=== PATIENT | female | born 1950 | race Caucasian/White ===

== ENCOUNTER → 2016-09-17 | Outpatient (CLI) | payer MEDICARE ==
--- NOTE | 2016-09-17 18:50 | Diagnostic Imaging Report ---
PROCEDURE: US Thyroid. TECHNIQUE: Multiple real-time grayscale images were obtained of the thyroid in various projections. INDICATION: Thyromegaly. No priors for comparison. FINDINGS: The right thyroid lobe is diffusely inhomogenous in its echotexture and measures 4.3 x 2.0 x 1.5 cm and contains a hypoechoic nodule at its upper pole measuring 1.5 x 0.6 x 1.0 cm. It appears at least partly cystic. The left lobe measured 4.0 x 1.8 x 1.6 cm and appeared nonfocal although diffusely heterogeneous. The isthmus unremarkable aside from generalized heterogeneity. IMPRESSION: Inhomogeneous thyroid parenchyma diffusely bilaterally without organomegaly. 1.5 cm maximal diameter hypoechoic right lobe nodule suggestive of at least partial cystic degeneration. If no priors are available to confirm its stability, consider followup in 6-12 months. Dictated by: Dictated on workstation # [id number]
== END ==
LOC: RAD 13:01
PROVIDERS: ATTEND Family Medicine
DX: E04.1 Nontoxic single thyroid nodule (principal); E03.9 Hypothyroidism, unspecified; E01.0 Iodine-deficiency related diffuse (endemic) goiter
CPT/HCPCS: 76536

== ENCOUNTER 2017-09-27 15:16 | Emergency (ER) | payer MEDICARE ==
--- OUTSIDE RECORDS SUMMARY | 2017-09-28 12:36 | XMS REPORT | CCD ---
Author Author PRINCE OTERO Organization Unknown Address [address] [facility] [address] [place] [address] Care Team Providers Care Implementation Architect Name Role Phone PILY MCMANUS, MANUEL GATICA Attphys E., SCOOTER NASST B., ARIADNA NASST A., CHET MARTIN NASST F., JASON NASST S., CARMELITA ALBARADO NASST S., CHANDRA NASST K., CHANDRA Greenberg NASST M., MICHELLE NASST Allergies Allergy Code Allergy Type Reaction Status No Known Drug Allergies 0 Drug allergy Active Active Medications Medication Code Dose Units Frequency Route Modification Start Date/Time Avalide 12.5MG-300MG Oral Tablet 186573 1 EACH DAILY ORAL 12/26/2016 21:52 Prescription Detail 1 EACH ORAL DAILY Colace 100MG Oral Capsule, Liquid Filled 6989756 100 MILLIGRAMS NEEDED ORAL 12/26/2016 21:52 Prescription Detail 100 MILLIGRAMS ORAL NEEDED Flaxseed Oil 1000 MG Oral Capsule, Liquid Filled 34752672062 2 CAP DAILY ORAL 12/26/2016 21:52 Prescription Detail 2 CAP ORAL DAILY Levothyroxine 25MCG Oral Tablet 828435 25 MCG DAILY ORAL 12/26/2016 21:52 Prescription Detail 25 MCG ORAL DAILY Pantoprazole Sodium 40MG Oral Tablet, Enteric Coated 708936 40 MILLIGRAMS DAILY ORAL 12/26/2016 21:52 Prescription Detail 40 MILLIGRAMS ORAL DAILY Potassium 99 MG Oral Tablet 95281244541 99 MG DAILY ORAL 12/26/2016 21:52 Prescription Detail 99 MG ORAL DAILY Tylenol 325MG Oral Tablet 173518 325 MILLIGRAMS NEEDED ORAL 12/26/2016 21:52 Prescription Detail 325 MILLIGRAMS ORAL NEEDED Vitamin D 5000 IU Oral Capsule 595734 8550 IU DAILY ORAL 12/26/2016 21:52 Prescription Detail 5000 IU ORAL DAILY Arthrotec 75 75MG-0.2MG Oral Tablet, Enteric Coated 4659764 1 EACH DAILY ORAL 12/26/2016 21:51 Prescription Detail 1 EACH ORAL DAILY hold until 24hrs after the last Xarelto dose Aspirin 325MG Oral Tablet, Enteric Coated 669021 1 TABLET TWO TIMES A DAY BY MOUTH 12/26/2016 21:51 Prescription Detail 1 TABLET BY MOUTH TWO TIMES A DAY start 24hrs after the last Xarleto dose oxyCODONE HCl-acetaminophen 5MG-325MG Oral Tablet 0235498 1 - 2 TABLET NEEDED EVERY 4 HR BY MOUTH FOR PAIN 12/26/2016 21:51 Prescription Detail 1 - 2 TABLET BY MOUTH NEEDED EVERY 4 HR FOR PAIN Docusate Sodium 100MG Oral Capsule, Liquid Filled 7789564 1 TABLET TWO TIMES A DAY BY MOUTH 12/26/2016 21: 50 Prescription Detail 1 TABLET BY MOUTH TWO TIMES A DAY Thera-M Enhanced 90MG-0.03MG-0.15MG-4 Oral Tablet 232628 1 TABLET DAILY BY MOUTH 12/26/2016 21:50 Prescription Detail 1 TABLET BY MOUTH DAILY Xarelto 10MG Oral Tablet 2418858 1 TABLET DAILY BY MOUTH 12/26/2016 21:50 Prescription Detail 1 TABLET BY MOUTH DAILY for ten days Problems Problem Code Start Date Resolved Date Status Status post knee replacement 3382755921117 Active Post op pain 754519711 Active Diabetes 28722327 Active Status post knee replacement [id number] 11/18/2016 Resolved Post op pain 269321713 11/18/2016 Resolved Procedures Procedure Code Procedure Type Date Replacement of Right Knee Joint with Synthetic Substitute, Cemented, Open [id number] ICD-10 PCS 11/13/2016 PT GROUP THERAPY 064609105 SNOMED CT 11/15/2016 PT GROUP THERAPY 355199004 SNOMED CT 11/15/2016 PT GAIT TRAINING/STAIRS EA [address] 11/15 KNEE 1V OR 2V 32687701 SNOM[address] 11/13/2016 CBC W/ AUTO DIFF (RFLX MAN DIFF IF IND) 8448748 SNOMED CT 11/15/2016 CBC W/ AUTO DIFF (RFLX MAN DIFF IF IND) 6000184 SNOMED CT 11/14/2016 BEDSIDE GLUCOSE 43066730 SNOMED CT 11/13/2016 PT GROUP THERAPY 368792436 SNOMED CT 11/14/2016 PT GROUP THERAPY 779841814 SNOMED CT 11/14/2016 PT EVALUATION; LOW 682464295 SNOMED CT 11/13/2016 THERAPEP TREATMENT SUBSEQUENT 632407647 SNOMED CT 2016 THERAPEP TREATMENT SUBSEQUENT 010274336 SNOMED CT 2016 THERAPEP TREATMENT SUBSEQUENT 208012201 SNOMED CT 2016 THERAPEP TREATMENT SUBSEQUENT 968882084 SNOMED CT 2016 THERAPEP TREATMENT SUBSEQUENT 394516860 SNOMED CT 2016 THERAPEP TREATMENT SUBSEQUENT 511163890 SNOMED CT 2016 THERAPEP TREATMENT SUBSEQUENT 420577603 SNOMED CT 2016 THERAPEP TREATMENT SUBSEQUENT 670724405 SNOMED CT 2016 THERAPEP TREATMENT INITIAL 656787475 SNOMED CT 11/13/2016 ^CBC W/AUTO DIFF 5830030 SNOMED CT 11/15/2016 ^CBC W/AUTO DIFF 6437340 SNOMED CT 11/14/2016 Results BEDSIDE GLUCOSE - Collect Date/Time: 11/13/2016 06:38 Test Name Code Test Result Test Units Test Ref Range GLUCOSE POCT 120 MG/DL L=70 H=100 CBC W/ AUTO DIFF (RFLX MAN DIFF IF IND) - Collect Date/Time: 11/15/2016 06:10 Test Name Code Test Result Test Units Test Ref Range WBC 30742-4 8.9 TH/CMM L=4.5 H=10.8 RBC 789-8 3.87 ML/CMM L=4.20 H=5.40 HGB 718-7 10.9 G/DL L=12.0 H=16.0 HCT 4544-3 34.5 % L=37.0 H=47.0 MCV 55117-1 89 FL L=81 H=99 MCH 89713-4 28.2 PG L=27.0 H=33.0 MCHC 65372-5 31.6 G/DL L=31.0 H=36[place] [address]-9 43 FL L=36 H=50 [place] [address]-5 13.1 % L=0.0 H=14.8 MPV 33727-7 11.0 FL L=9.3 H=12.5 PLT 777-3 210 TH/CMM L=130 H=440 NRBC# 35054-1 0.00 TH/CMM L=0.00 H=0.00 NRBC% 90087-0 0.0 /100WBC L=0.0 H=2.0 %NEUT 69507-0 69.4 % %LYMP 82241-4 19.9 % %MONO 63210-2 7.7 % %EOS 91639-4 2.5 % %BASO 22579-7 0.3 % #NEUT 47889-6 6.16 TH/CMM L=2.10 H=8.20 #LYMP 60844-0 1.77 TH/CMM L=0.90 H=5.20 #MONO 11119-4 0.68 TH/CMM L=0.16 H=1.00 #EOS 34871-1 0.22 TH/CMM L=0.00 H=0.80 #BASO 36084-4 0.03 TH/CMM L=0.00 H=0.20 MANUAL DIFF 29852-0 NOT IND N/A CBC W/ AUTO DIFF (RFLX MAN DIFF IF IND) - Collect Date/Time: 11/14/2016 06:35 Test Name Code Test Result Test Units Test Ref Range WBC 49985-5 12.8 TH/CMM L=4.5 H=10.8 RBC 789-8 3.85 ML/CMM L=4.20 H=5.40 HGB 718-7 11.0 G/DL L=12.0 H=16.0 HCT 4544-3 34.2 % L=37.0 H=47.0 MCV 70799-7 89 FL L=81 H=99 MCH 71914-6 28.6 PG L=27.0 H=33.0 MCHC 91071-0 32.2 G/DL L=31.0 H=36[place]0 [place] [address]-6 42 FL L=36 H=50 [place] [address]-5 13.0 % L=0.0 H=14.8 MPV 00772-8 10.7 FL L=9.3 H=12.5 PLT 777-3 227 TH/CMM L=130 H=440 NRBC# 49283-8 0.00 TH/CMM L=0.00 H=0.00 NRBC% 87835-0 0.0 /100WBC L=0.0 H=2.0 %NEUT 45916-6 82.4 % %LYMP 03309-3 11.6 % %MONO 36860-6 5.3 % %EOS 25467-9 0.2 % %BASO 20489-0 0.1 % #NEUT 45800-8 10.52 TH/CMM L=2.10 H=8.20 #LYMP 79074-1 1.48 TH/CMM L=0.90 H=5.20 #MONO 63798-2 0.67 TH/CMM L=0.16 H=1.00 #EOS 11966-9 0.02 TH/CMM L=0.00 H=0.80 #BASO 36743-1 0.01 TH/CMM L=0.00 H=0.20 MANUAL DIFF 17456-8 NOT IND N/A Function Status Unknown or Not Available. History of Immunizations Immunization Code Date influenza, split (incl. purified surface antigen) 15 06/01/1999 influenza, split (incl. purified surface antigen) 15 06/10/2000 pneumococcal polysaccharide PPV23 33 03/07/2016 Hep B, adult 43 07/06/1993 Hep B, adult 43 08/10/1993 Hep B, adult 43 01/10/1994 Novel lbclohofu-[id number], preservative-free 126 06/13/2009 Pneumococcal conjugate PCV 13 133 02/03/2015 Influenza, seasonal, injectable 141 05/19/2012 Influenza, seasonal, injectable 141 05/04/2013 influenza, injectable, quadrivalent, preservative free 150 2013 Plan of Treatment Unknown or Not Available. Social History Smoking Status Code Start Date End Date Never smoker [id number] Vital Signs Vital Sign Value Unit Date/Time Recent/Initial? BMI (Body Mass Index) 30.28 kg/m2 10/28/2016 12:08 Initial VS Weight Measured 211 [lb_av] 10/28/2016 12:08 Initial VS Height 70 [in_i] 10/28/2016 12:08 Initial VS BSA (Body Surface Area) 2.17 m2 10/28/2016 12:08 Initial VS BMI (Body Mass Index) 30.28 kg/m2 10/28/2016 12:26 Most Recent VS Weight Measured 211 [lb_av] 10/28/2016 12:26 Most Recent VS Height 70 [in_i] 10/28/2016 12:26 Most Recent VS BSA (Body Surface Area) 2.17 m2 10/28/2016 12:26 Most Recent VS BP Systolic 130 mm[Hg] 10/28/2016 12:26 Initial VS BP Diastolic 76 mm[Hg] 10/28/2016 12:26 Initial VS Respiratory Rate 18 /min 10/28/2016 12:26 Initial VS Heart Rate 70 /min 10/28/2016 12:26 Initial VS O2 % BldC Oximetry 97 % 10/28/2016 12:26 Initial VS Body Temperature 94.8 [degF] 11/13/2016 10:30 Initial VS BP Systolic 131 mm[Hg] 11/15/2016 11:07 Most Recent VS BP Diastolic 66 mm[Hg] 11/15/2016 11:07 Most Recent VS Respiratory Rate 16 /min 11/15/2016 11:07 Most Recent VS Heart Rate 71 /min 11/15/2016 11:07 Most Recent VS O2 % BldC Oximetry 97 % 11/15/2016 11:07 Most Recent VS Body Temperature 97 [degF] 11/15/2016 11:07 Most Recent VS Function Status Unknown or Not Available. Goals Unknown or Not Available. ASSESSMENTS Unknown or Not Available. Health Concerns Section Unknown or Not Available.
--- OUTSIDE RECORDS SUMMARY | 2017-09-28 12:36 | XMS REPORT | Continuity of Care Document ---
Author Author [facility] Organization [facility] Address Unknown Phone Unavailable Allergies There is no data. Medications There is no data. Problems There is no data. Procedures There is no data. Results There is no data. Encounters ACCT No. Visit Date/Time Discharge Status Pt. Type Provider Facility Loc./Unit Complaint [id number] 04/02/2017 13:03:32 04/02/2017 23:59:59 CLS Outpatient Josephine Us [id number] 01/03/2017 12:00:12 01/03/2017 23:59:59 CLS Outpatient Josephine Us
== END 2017-09-27 16:18 | disposition left against medical advice (07) ==
LOC: EDUNIT# 15:16 → ER 15:18
DX: R11.10 Vomiting, unspecified (principal); R05 Cough

== ENCOUNTER → 2017-10-23 | Outpatient (CLI) | payer MEDICARE | LOC: CARD 11:51 | PROVIDERS: ATTEND Family Medicine | DX: R01.1 Cardiac murmur, unspecified (principal); R79.89 Other specified abnormal findings of blood chemistry; I07.1 Rheumatic tricuspid insufficiency | CPT/HCPCS: 93306 ==

== ENCOUNTER 2018-08-17 05:42 | Outpatient (CLI) | payer MEDICARE ==
[~2018-08-17] VITALS: Ht 175.3 cm; Wt 87.1 kg
[2018-08-17] MEDS ORDERED: DICL50TA6 PO (09:34)
[2018-08-17] MEDS ORDERED: MAGN250T2 PO (09:34)
[2018-08-17] MEDS ORDERED: CHOL400T PO (09:34)
[2018-08-17] MEDS ORDERED: [UNRECOGNIZED DRUG - CODE] PO (09:34)
[2018-08-17] MEDS ORDERED: PANT40TA3 PO (09:34)
[2018-08-17] MEDS ORDERED: AMLO5TAB9 PO (09:34)
[2018-08-17] MEDS ORDERED: IRBE1TAB43 PO (09:34)
[2018-08-17] MEDS ORDERED: POTA99TA7 PO (09:35)
== END 2018-08-17 09:41 | disposition home or self-care (01) ==
LOC: PREOP 05:42
PROVIDERS: ATTEND Surgery
DX: Z01.818 Encounter for other preprocedural examination (principal)

== ENCOUNTER 2018-08-24 08:57 | Day surgery (SDC) | payer MEDICARE ==
[~2018-08-24] VITALS: Ht 175.3 cm; Wt 87.1 kg
[~2018-08-24 08:57] MED LIST: AMLO5TAB9 PO; CHOL400T PO; DICL50TA6 PO; IRBE1TAB43 PO; MAGN250T2 PO; PANT40TA3 PO; POTA99TA7 PO; [UNRECOGNIZED DRUG - CODE] PO
--- OUTSIDE RECORDS SUMMARY | 2018-08-24 09:00 | XMS REPORT | Continuity of Care Document ---
Author Author [facility] Organization [facility] Address Unknown Phone Unavailable Allergies Active Description Code Type Severity Reaction Onset Reported/Identified Relationship to Patient Clinical Status Yes NO KNOWN DRUG ALLERGIES UNKNOWN NO KNOWN DRUG ALLERG Yes No Known Drug Allergies [id number] Drug Allergy Unknown N/A 08/17/2018 Medications Medication Packaging Start Date Stop Date Route Dosage Sig IPRATROPIUM/ALBUTEROL INH SOLN (DUO-NEB INH SOLN) MLS 2017 2017 ONCE&1751 NORMAL SALINE 1000CC IV BAG INJ 0.9 % (NS 1000CC IV BAG) ml 2017 10/12/2017 CONTINUOUSEVERY 0 Hour ONDANSETRON VIAL INJ 4 MG/2CC (ZOFRAN 2CC VIAL) MG 2017 2017 PRN ONCE NORMAL SALINE 500CC IV BAG INJ 0.9 % (NS 500CC IV BAG) ml 2017 2017 ONCE&1826 METHYLPREDNISOLONE VIAL INJ 125 MG/2CC (SOLU-MEDROL VIAL) MG 2017 2017 ONCE&1836 LEVOFLOXACIN TAB 500 MG (LEVAQUIN) MG 2017 2017 ONCE&1948 MISOPROSTOL TAB 200 MCG (CYTOTEC) Dose(s) 2017 10/04/2017 BID&0800,2000 ASPIRIN 81MG CHEWABLE TAB 81 MG (BABY ASPIRIN) MG 2017 2017 ONCE&2105 LEVOFLOXACIN PREMIX IV BAG INJ 500 MG/100CC (LEVAQUIN IV PREMIX 100CC BAG) MG 2017 2017 ONCE&2105 NORMAL SALINE 1000CC IV BAG INJ 0.9 % (NS 1000CC IV BAG) ml 2017 10/12/2017 CONTINUOUSEVERY 0 Hour PANTOPAZOLE VIAL INJ 40 MG (PROTONIX IV) MG 2017 2017 ONCE&2105 ONDANSETRON VIAL INJ 4 MG/2CC (ZOFRAN 2CC VIAL) MG 2017 2017 PRN ONCE GUAIFENESIN TAB 600 MG (MUCINEX) MG 09/28/2017 10/04/2017 Q12H&0600,1800 LEVOTHYROXINE TAB 25MCG (SYNTHROID) MCG 09/28/2017 10/04/2017 Daily&0600 IPRATROPIUM/ALBUTEROL INH SOLN (DUO-NEB INH SOLN) MLS 09/28/2017 10/07/2017 QID&0600,1100,1600,2100 AZITHROMYCIN TAB 250 MG (ZITHROMAX) MG 09/28/2017 10/01/2017 Daily&0900 ASPIRIN ENTERIC COATED TAB 81 MG (BABY ASPIRIN EC) MG 09/28/2017 10/11/2017 Daily&0900 LEVOFLOXACIN PREMIX IV BAG INJ 500 MG/100CC (LEVAQUIN IV PREMIX 100CC BAG) MG 09/28/2017 10/04/2017 Daily&0900 PANTOPAZOLE VIAL INJ 40 MG (PROTONIX IV) MG 09/28/2017 10/07/2017 Daily&0900 NORMAL SALINE 1000CC IV BAG INJ 0.9 % (NS 1000CC IV BAG) ml 09/28/2017 10/13/2017 CONTINUOUSEVERY 0 Hour LEVOTHYROXINE TAB 25MCG (SYNTHROID) Dose(s) 09/29/2017 10/04/2017 Daily&0600 ALBUTEROL INHALER MDI 8 GM (VENTOLIN HFA) PUFF (S) 09/29/2017 10/09/2017 PRN QID Docusate sodium 100mg oral capsule (COLACE) Dose(s) 09/30/2017 10/28/2017 Daily&0900 Problems Date Dx Coded Attending Type Code Diagnosis Diagnosed By 10/10/2016 ARIADNA CHANDLER DO Ot E01.0 IODINE-DEFICIENCY RELATED DIFFUSE (ENDEM 10/10/2016 ARIADNA CHANDLER DO Ot E03.9 HYPOTHYROIDISM, UNSPECIFIED 10/10/2016 ARIADNA CHANDLER DO Ot E04.1 NONTOXIC SINGLE THYROID NODULE 10/16/2016 ARIADNA CHANDLER DO Ot E01.0 IODINE-DEFICIENCY RELATED DIFFUSE (ENDEM 10/16/2016 ORENDER DO, ARIADNA S Ot E03.9 HYPOTHYROIDISM, UNSPECIFIED 10/16/2016 ARIADNA CHANDLER DO S Ot E04.1 NONTOXIC SINGLE THYROID NODULE 2017 NIYAH MEDINA DO Ot R05 COUGH 2017 NIYAH MEDINA DO Ot R11.10 VOMITING, UNSPECIFIED 09/29/2017 Gigi, Niyah W 466.0 ACUTE BRONCHITIS 09/29/2017 Gigi, Niyah W 535.50 UNSPECIFIED GASTRITIS AND GASTRODUODENITIS, WITHOUT MENTION OF HEMORRHAGE 09/29/2017 Gigi, Niyah W 786.50 UNSPECIFIED CHEST PAIN 09/29/2017 Gigi, Niyah W J20.9 ACUTE BRONCHITIS, UNSPECIFIED 09/29/2017 Gigi, Niyah W K29.70 GASTRITIS, UNSPECIFIED, WITHOUT BLEEDING 09/29/2017 Gigi, Niyah W R07.9 CHEST PAIN, UNSPECIFIED 09/29/2017 Gigi, Niyah W 466.0 ACUTE BRONCHITIS 09/29/2017 Gigi, Niyah W 535.50 UNSPECIFIED GASTRITIS AND GASTRODUODENITIS, WITHOUT MENTION OF HEMORRHAGE 09/29/2017 Gigi, Niyah W 786.50 UNSPECIFIED CHEST PAIN 09/29/2017 Gigi, Niyah W J20.9 ACUTE BRONCHITIS, UNSPECIFIED 09/29/2017 Gigi, Niyah W K29.70 GASTRITIS, UNSPECIFIED, WITHOUT BLEEDING 09/29/2017 Gigi, Niyah W R07.9 CHEST PAIN, UNSPECIFIED 09/29/2017 Gigi, Niyah W 401.0 09/29/2017 Gigi, Niyah A 466.0 ACUTE BRONCHITIS 09/29/2017 Gigi, Niyah W 535.50 UNSPECIFIED GASTRITIS AND GASTRODUODENITIS, WITHOUT MENTION OF HEMORRHAGE 09/29/2017 Gigi, Niyah W 786.50 UNSPECIFIED CHEST PAIN 09/29/2017 Gigi, Niyah W 787.01 09/29/2017 Gigi, Niyah W 791.9 OTHER NONSPECIFIC FINDINGS ON EXAMINATION OF URINE 09/29/2017 Gigi, Niyah W I10 ESSENTIAL (PRIMARY) HYPERTENSION 09/29/2017 Gigi, Niyah A J20.9 ACUTE BRONCHITIS, UNSPECIFIED 09/29/2017 Gigi, Niyah W K29.70 GASTRITIS, UNSPECIFIED, WITHOUT BLEEDING 09/29/2017 Gigi, Niyah W R07.9 CHEST PAIN, UNSPECIFIED 09/29/2017 Niyah Yu W R11.2 NAUSEA WITH VOMITING, UNSPECIFIED 09/29/2017 Niyah Yu W R82.99 OTHER ABNORMAL FINDINGS IN URINE 10/03/2017 NIYAH MEDINA DO Ot R05 COUGH 10/03/2017 NIYAH MEDINA DO Ot R11.10 VOMITING, UNSPECIFIED 10/27/2017 ORENDER DO, ARIADNA S Ot I07.1 RHEUMATIC TRICUSPID INSUFFICIENCY 10/27/2017 ORENDER DO, ARIADNA S Ot R01.1 CARDIAC MURMUR, UNSPECIFIED 10/27/2017 ORENDER DO, ARIADNA S Ot R79.89 OTHER SPECIFIED ABNORMAL FINDINGS OF BLO 10/27/2017 ORENDER DO, ARIADNA S Ot I07.1 RHEUMATIC TRICUSPID INSUFFICIENCY 10/27/2017 ORENDER DO, ARIADNA S Ot R01.1 CARDIAC MURMUR, UNSPECIFIED 10/27/2017 ORENDER DO, ARIADNA S Ot R79.89 OTHER SPECIFIED ABNORMAL FINDINGS OF BLO 11/13/2017 ORENDER DO, ARIADNA S Ot I07.1 RHEUMATIC TRICUSPID INSUFFICIENCY 11/13/2017 ORENDER DO, ARIADNA S Ot R01.1 CARDIAC MURMUR, UNSPECIFIED 11/13/2017 ORENDER DO, ARIADNA S Ot R79.89 OTHER SPECIFIED ABNORMAL FINDINGS OF BLO 11/19/2017 ORENDER DO, ARIADNA S Ot I07.1 RHEUMATIC TRICUSPID INSUFFICIENCY 11/19/2017 ORENDER DO, ARIADNA S Ot R01.1 CARDIAC MURMUR, UNSPECIFIED 11/19/2017 ORENDER DO, ARIADNA S Ot R79.89 OTHER SPECIFIED ABNORMAL FINDINGS OF BLO 08/10/2018 ORENDER DO, ARIADNA S Ot E01.0 IODINE-DEFICIENCY RELATED DIFFUSE (ENDEM 08/10/2018 ORENDER DO, ARIADNA S Ot E03.9 HYPOTHYROIDISM, UNSPECIFIED 08/10/2018 ORENDER DO, ARIADNA S Ot E04.1 NONTOXIC SINGLE THYROID NODULE 08/10/2018 ORENDER DO, ARIADNA S Ot I07.1 RHEUMATIC TRICUSPID INSUFFICIENCY 08/10/2018 ORENDER DO, ARIADNA S Ot R01.1 CARDIAC MURMUR, UNSPECIFIED 08/10/2018 ARIADNA CHANDLER DO Ot R79.89 OTHER SPECIFIED ABNORMAL FINDINGS OF BLO 08/10/2018 ARIADNA CHANDLER DO Ot Z12.31 ENCNTR SCREEN MAMMOGRAM FOR MALIGNANT NE 08/11/2018 ARIADNA CHANDLER DO Ot Z12.31 ENCNTR SCREEN MAMMOGRAM FOR MALIGNANT NE 08/17/2018 DA MCMANUS, CHONG Mauricio Ot Z01.818 ENCOUNTER FOR OTHER PREPROCEDURAL EXAMIN Procedures There is no data. Results Test Result Range Thyroid Stimulating Hormone - 09/27/17 17:07 TSH 2.39 mIU/mL 0.32-5.00 Cardiac Panel - 09/27/17 17:07 CK 58 U/L 26-174 CK-MB 2.5 ng/ml 0.0-9.2 Myoglobin 70.9 ng/ml 1.6-106.0 Troponin 0.036 ng/mL 0.000-0.400 Blood Culture - 09/27/17 17:07 PRELIM CULTURE RESULTS Blood Culture Negative, No Growth Day 1 FINAL CULTURE RESULTS Blood Culture Negative, No Growth Day 5 MEDIA PLATED Blood Culture Media Position C47 CULTURE SOURCE right arm Cardiac Panel - 09/27/17 19:31 CK 47 U/L 26-174 CK-MB 2.3 ng/ml 0.0-9.2 Myoglobin 63.1 ng/ml 1.6-106.0 Troponin 0.047 ng/mL 0.000-0.400 Blood Culture - 09/27/17 21:04 PRELIM CULTURE RESULTS Blood Culture Negative, No Growth Day 1 FINAL CULTURE RESULTS Blood Culture Negative, No Growth Day 5 MEDIA PLATED Blood Culture Media Position C41 CULTURE SOURCE left arm Urinalysis - 09/27/17 23:00 Icotest N/A Negative Urine Volume Urine Volume Sufficient (10mL) Urine Yeast No Yeast present Urine-Appearance Clear Clear Urine-Bacteria 1+ Urine-Bilirubin Negative Negative Urine-Blood Negative Negative Urine-Color Yellow Colorless-Lt. Yellow Urine-Epithelial Cells 5-10/HPF Urine-Glucose Negative Negative Urine-Ketones 1+ Negative Urine-Leukocytes 1+ Negative Urine-Mucus 2+ Urine-Nitrite Negative Negative Urine-Other Urine Saved if Culture Needed (48hrs from time of collection) Urine-pH 7.0 5-8.5 Urine-Protein Trace Negative Urine-RBC 2-5/HPF Urine-Specific Peel 1.020 1.000-1.030 Urine-WBC 2-5/HPF Urobilinogen 0.2 0.2-1.0 Cardiac Panel - 09/27/17 23:00 CK 45 U/L 26-174 CK-MB 2.2 ng/ml 0.0-9.2 Myoglobin 63.3 ng/ml 1.6-106.0 Troponin 0.055 ng/mL 0.000-0.400 Cardiac Panel - 09/28/17 04:53 CK 43 U/L 26-174 CK-MB 2.0 ng/ml 0.0-9.2 Myoglobin 59.0 ng/ml 1.6-106.0 Troponin 0.037 ng/mL 0.000-0.400 Comprehensive Metabolic Panel - 09/28/17 07:00 Albumin 3.7 g/dL 3.6-5.1 ALP 99 U/L 35-130 ALT 21 U/L 6-45 Anion Gap 17 6-14 AST 14 U/L 2-40 BUN 22 mg/dL 5-25 Calcium 9.0 mg/dL 8.3-10.4 Chloride 102 mmol/L 95-114 CO2 22 mEq/L 22-33 Creat 0.90 mg/dL 0.50-1.50 eGFR 62 mL/min/1.73m2 >59 Globulin 2.7 g/dL 2.3-3.5 Glucose 162 mg/dL 70-110 Osmo 289 280-295 Potassium 3.9 mmol/L 3.5-5.3 Sodium 137 mmol/L 134-148 TBil 0.6 mg/dL 0.2-1.2 TP 6.4 g/dL 6.0-8.3 [facility] - 09/29/17 06:47 Anion Gap 17 6-14 BUN 15 mg/dL 5-25 Calcium 9.3 mg/dL 8.3-10.4 Chloride 105 mmol/L 95-114 CO2 24 mEq/L 22-33 Creat 0.87 mg/dL 0.50-1.50 eGFR 65 mL/min/1.73m2 >59 Glucose 113 mg/dL 70-110 Osmo 295 280-295 Potassium 4.0 mmol/L 3.5-5.3 Sodium 142 mmol/L 134-148 Encounters ACCT No. Visit Date/Time Discharge Status Pt. Type Provider Facility Loc./Unit Complaint [id number] 04/02/2017 13:03:32 04/02/2017 23:59:59 CLS Outpatient Josephine Us [id number] 01/03/2017 12:00:12 01/03/2017 23:59:59 CLS Outpatient Josephine Us [id number] 08/17/2018 05:42:00 08/17/2018 09:41:00 DIS Outpatient CHONG ROBERSON MD [facility] PREOP COLONOSCOPY [id number] 08/10/2018 09:09:00 08/10/2018 23:59:59 CLS Outpatient VELASQEUZ CHANDLER DOLINE S [facility] RAD SCREENING [id number] 10/23/2017 11:51:00 10/23/2017 23:59:59 CLS Outpatient VELASQUEZ CHANDLER DOLINE S [facility] CARD ELEVATED CARDIAC ENZYMES [id number] 2017 15:18:00 2017 16:18:00 DIS Emergency ADAM NIYAH K [facility] ER VOMITING,COUGH [id number] 11/18/2016 09:40:00 11/18/2016 23:59:59 CLS Preadmit PILY MCMANUS, MANUEL Garland [facility] REHAB R TKA [id number] 09/17/2016 13:01:00 09/17/2016 23:59:59 CLS Outpatient VELASQUEZ CHANDLER DOLINE S [facility] RAD THYROMEGALY [id number] 08/24/2018 10:00:00 PEN Preadmit DA MCMANUS, CHONG Mauricio [facility] ENDO Z80.0/Z86.010 08/201708/05/2018 14:08:16 08/05/2018 23:59:59 CLS Outpatient Ariadna Chandler S. [id number] 2017 16:47:00 09/29/2017 09:55:00 DIS Outpatient [facility] ICU [id number] 2017 17:51:46 Document Registration
[2018-08-24] MEDS ORDERED: NS IV 500 ML 500 ML ONE (09:06)
[2018-08-24] MEDS ORDERED: NS IV 500 ML 500 ML IV PRN (09:06)
[2018-08-24] MEDS ORDERED: fentaNYL INJECTION 100 MCG/2 ML AMP IVP ONE (09:15)
[2018-08-24] MEDS ORDERED: MIDAZOLAM 2 MG/2 ML (VERSED) VIAL IVP ONE (09:15)
[2018-08-24] MEDS ORDERED: LEVO25TA5 PO (09:19)
[2018-08-24 09:23] VITALS: BP 122/66
--- NOTE | 2018-08-24 09:27 | Conscious Sedation/ASA ---
Conscious Sedation Pre-Proced Time 09:27 ASA Score 2 For ASA 3 and 4: Consider anesthesia and medical clearance. Also, for patients with a history of failed moderate sedation consider anesthesia. Airway Lungs Heart ASA score ASA 1: a normal healthy patient ASA 2: a patient with a mild systemic disease (mid diabetes, controlled hypertension, obesity ASA 3: a patient with a severe systemic disease that limits activity (angina , COPD, prior Myocardial infarction) ASA 4: a patient with an incapacitating disease that is a constant threat to life (CHF, renal failure) ASA 5: a moribund patient not expected to survive 24 hrs. (ruptured aneurysm) ASA 6: a declared brain- patient whose organs are being harvested. For emergent operations, add the letter E after the classification Mallampati Classification Grade 1 Sedation Plan Discussed options with patient/fam The patient is an appropriate candidate to undergo the planned procedure, sedation, and anesthesia. The patient immediately re-assessed prior to indication. CHONG ROBERSON MD Aug 24, 2018 09:27
--- NOTE | 2018-08-24 09:27 | History & Physicial ---
History of Present Illness History of Present Illness Reason for visit/HPI to undergo surveillance colonoscopy. Personal history of polyps and a family history of colon carcinoma. Date of Admission 08/24/18 Date Seen by a Provider: Aug 24, 2018 Time Seen by a Provider: 09:26 I consulted on this patient on 08/24/18 09:25 Attending Physician Chong Hoff MD Admitting Physician Sushila Chandler DO Consult Allergies and Home Medications Allergies Coded Allergies: No Known Drug Allergies (Unverified , 08/17/18) Home Medications Amlodipine Besylate 5 Mg Tablet, 5 MG PO HS, (Reported) Cholecalciferol (Vitamin D3) 400 Unit Tablet, 400 UNIT PO DAILY, (Reported) Diclofenac Sodium 50 Mg Tablet.dr, 50 MG PO BID, (Reported) Irbesartan/Hydrochlorothiazide 1 Each Tablet, 1 EACH PO DAILY, (Reported) Levothyroxine Sodium 25 Mcg Tablet, 25 MCG PO DAILY, (Reported) Magnesium 250 Mg Tablet, 250 MG PO DAILY, (Reported) Misoprostol 100 Mcg Tablet, 100 MCG PO BID, (Reported) Pantoprazole Sodium 40 Mg Tablet.dr, 40 MG PO DAILY, (Reported) Potassium 99 Mg Tablet, 99 MG PO DAILY, (Reported) Patient Home Medication List Home Medication List Reviewed: Yes Past Eoxqvop-Ejqjgp-Rgwini Hx Patient Social History Marrital Status: Employed/Student: retired Alcohol Use: Denies Use Recreational Drug Use: No Smoking Status: Never a Smoker 2nd Hand Smoke Exposure: No Recent Foreign Travel: No Contact w/other who traveled: No Recent Hopitalizations: No Recent Infectious Disease Expo: No Immunizations Up To Date Date of Pneumonia Vaccine: Apr 20, 2018 Date of Influenza Vaccine: Apr 20, 2018 Seasonal Allergies Seasonal Allergies: No Surgeries Yes (back sx, bilat TKR) Hysterectomy, Tonsillectomy Respiratory No Cardiovascular Yes Hypertension Neurological No Genitourinary No Gastrointestinal Yes Polyps Musculoskeletal Yes Arthritis Endocrine History of Endocrine Disorders: Yes (diet controlled) Endocrine Disorders: Diabetes, Non-Insulin dep HEENT History of HEENT Disorders: No Cancer No Psychosocial History of Psychiatric Problem: No Integumentary History of Skin or Integumenta: No Blood Transfusions History of Blood Disorders: No Review of Systems Constitutional: no symptoms reported EENTM: no symptoms reported Respiratory: no symptoms reported Cardiovascular: no symptoms reported Gastrointestinal: no symptoms reported Genitourinary: no symptoms reported Musculoskeletal: no symptoms reported Skin: no symptoms reported Psychiatric/Neurological: Anxiety Physical Exam Vital Signs Vital Signs - First Documented 08/24/18 09:23 Temp 98.0 Pulse 72 Resp 16 B/P (MAP) 122/66 (84) Pulse Ox 97 O2 Delivery Room Air Capillary Refill : Height, Weight, BMI Height: 5'9.00" Weight: 192lbs. 0.0oz. 87.450709hk; 28.4 BMI Method: General Appearance: Anxious Neck: Normal Inspection Respiratory: Lungs Clear Cardiovascular: Regular Rate, Rhythm Gastrointestinal: Non Tender, Soft Rectal: Deferred Neurologic/Psychiatric: Alert, Oriented x3 Skin: Warm/Dry Assessment/Plan Assessment and Plan lady with a personal history of polyps and a family history of colon cancer. For surveillance colonoscopy. Admission Diagnosis Admission Status: Other (Outpt Proc) CHONG HOFF MD Aug 24, 2018 09:27
[2018-08-24] MEDS ORDERED: fentaNYL INJECTION 100 MCG/2 ML AMP ONE ×2 (10:01)
[2018-08-24] MEDS ORDERED: MIDAZOLAM 2 MG/2 ML (VERSED) VIAL ONE ×3 (10:01)
--- NOTE | 2018-08-24 10:39 | Endo Procedure Record ---
Endo Procedure Report Date of Procedure Last Colonoscopy: Yes Aug 24, 2018 Surgeon (s) CHONG ROBERSON MD Post Procedure/Op Diagnosis sigmoid diverticulosis .Poor bowel prep Procedure Performed colonoscopy to cecum Description of Procedure Anesthesia Type: Conscious Sedation Specimen(s) collected/removed None Description of the Procedure Indication for the procedure: This lady came in for screening colonoscopy, having had a personal history of adenomatous polyps and a family history of colon cancer. Informed consent was obtained after reviewing the procedure in detail. Description of the procedure: She was placed in left lateral decubitus position and her vital signs were monitored. Conscious sedation was achieved using Versed and fentanyl. Digital rectal examination was unremarkable. The colonoscope was then introduced into the rectum and advanced to the cecum. The quality of bowel preparation was rather poor. I was however able to suction the liquid fecal material and complete the examination. The scope was then withdrawn slowly and the mucosa examined in a systematic fashion. Finding: Sigmoid diverticulosis. No recurrent polyps were found. She tolerated the procedure well and was taken back to the nursing area in a stable condition. Impression: Personal history of polyps. Family history of colon cancer. Negative colonoscopy. Recommend repeating in 5 years. Copy Copies To 1: ARIADNA MENG XAVIER M MD Aug 24, 2018 10:39
--- NOTE | 2018-08-24 10:41 | Discharge Inst-Simple/Standard ---
Discharge Inst-Standard Discharge Medications New, Converted or Re-Newed RX: Other Patient Instructions/Follow Up Plan of Care/Instructions/FU: repeat colonoscopy in 5 years Activity as Tolerated: Yes Discharge Diet: No Restrictions CHONG ROBERSON MD Aug 24, 2018 10:41
[2018-08-24 11:05] VITALS: BP 111/63
[2018-08-24 11:30] VITALS: BP 111/63
[2018-08-24 11:32] VITALS: BP 119/71
== END 2018-08-24 11:35 | disposition home or self-care (01) ==
LOC: ENDO 08:57
PROVIDERS: ATTEND Surgery
DX: Z12.11 Encounter for screening for malignant neoplasm of colon (principal); K57.30 Diverticulosis of large intestine without perforation or abscess without bleeding; I10 Essential (primary) hypertension; E11.9 Type 2 diabetes mellitus without complications; F41.9 Anxiety disorder, unspecified; Z86.010 Personal history of colon polyps; Z80.0 Family history of malignant neoplasm of digestive organs; Z79.899 Other long term (current) drug therapy; Z96.653 Presence of artificial knee joint, bilateral

== ENCOUNTER 2018-10-01 06:00 | Outpatient (RCR) | payer MEDICARE ==
[~2018-10-01 06:00] MED LIST changes: +LEVO25TA5 PO
== END 2018-10-03 | disposition home or self-care (01) ==
LOC: CR3 06:00
PROVIDERS: ATTEND Family Medicine
DX: Z29.8 Encounter for other specified prophylactic measures (principal)

== ENCOUNTER 2018-11-03 06:00 | Outpatient (RCR) | payer MEDICARE | END 2018-11-12 | disposition home or self-care (01) | LOC: CR3 06:00 | PROVIDERS: ATTEND Family Medicine | DX: Z29.8 Encounter for other specified prophylactic measures (principal) ==

== ENCOUNTER → 2019-03-17 | Outpatient (CLI) | payer MEDICARE ==
--- NOTE | 2019-03-17 16:49 | Diagnostic Imaging Report ---
PATIENT HISTORY: LOWER BACK PAIN HX OF SURGERY. TECHNIQUE: Three views of the lumbar spine. COMPARISON: None. FINDINGS: There is transitional anatomy at the lumbosacral junction. There may be six [id number]-[id number] vertebral bodies; however, the 12th ribs are thought to be diminutive. There is mild left convex curvature of the lumbar spine centered at L2. Severe degenerative changes are seen throughout the lumbar spine with mild chronic-appearing height loss at L2 and L3. No acute fracture is seen. There is grade 1 retrolisthesis at L4-L5 and grade 1 anterolisthesis at L5-S1. IMPRESSION: 1. Advanced degenerative changes in the lumbar spine, most severe at L2-L3. 2. Mild left convex curvature centered at L2. 3. Transitional anatomy. Dictated by: Dictated on workstation # [id number]
== END ==
LOC: RAD 14:57
PROVIDERS: ATTEND Family Medicine
DX: M47.816 Spondylosis without myelopathy or radiculopathy, lumbar region (principal); M43.8X6 Other specified deforming dorsopathies, lumbar region; Z98.890 Other specified postprocedural states
CPT/HCPCS: 72100

== ENCOUNTER → 2020-07-25 | Outpatient (CLI) | payer MEDICARE ==
[~2020-07-25] MED LIST changes: +AMLO-250 PO; -AMLO5TAB9 PO; +MISO100T42 PO; -PANT40TA3 PO; +PANT40TA52 PO; -[UNRECOGNIZED DRUG - CODE] PO
--- NOTE | 2020-07-25 17:19 | Diagnostic Imaging Report ---
INDICATION: Routine screening. COMPARISON is made with prior mammograms of 08/10/2018 and 08/05/2016. 2-D and 3-D bilateral screening mammography was performed with CAD. Both breasts are heterogeneously dense, limiting the sensitivity of mammography. There is a focal density in the inferior right breast best seen on the CC view. Appears inferiorly located on the tomographic images. Additional views are recommended. Left breast is unremarkable. There are benign calcifications. No malignant appearing microcalcifications are seen. Axillae are unremarkable. IMPRESSION: BI-RADS 0 Right breast density. Additional views are recommended for further evaluation. ACR BI-RADS Category 0: Incomplete. (Needs additional imaging evaluation). Result letter will be mailed to the patient. Note: At least 10% of breast cancer is not imaged by mammography. Dictated by: Dictated on workstation # [id number]
== END ==
LOC: RAD 14:31
PROVIDERS: ATTEND Family Medicine
DX: Z12.31 Encounter for screening mammogram for malignant neoplasm of breast (principal)
CPT/HCPCS: 77063; 77067

== ENCOUNTER → 2020-08-07 | Outpatient (CLI) | payer MEDICARE ==
--- NOTE | 2020-08-07 13:30 | Diagnostic Imaging Report ---
INDICATION: Right breast density. Patient presents for additional views. Correlation is made with recent screening study from 07/25/2020. 2-D and 3-D lateral right diagnostic mammography was performed. This included spot compression CC, rolled CC as well as spot compression ML and conventional 90 degree lateral views. There is questionable residual nodular density in the lower inner right breast approximately 6 cm from the nipple. Further evaluation with ultrasound is recommended. No other masses are seen. No malignant appearing microcalcifications are seen. IMPRESSION: BI-RADS code 0 Residual density lower inner right breast. Further evaluation with ultrasound is recommended and will be performed today. ACR BI-RADS Category 0: Incomplete. (Needs additional imaging evaluation). Result letter will be mailed to the patient. Note: At least 10% of breast cancer is not imaged by mammography. Dictated by: Dictated on workstation # [id number]
--- NOTE | 2020-08-07 14:18 | Diagnostic Imaging Report ---
INDICATION: Right breast density. COMPARISON: Correlation is made with the diagnostic mammogram from earlier this same day and a screening mammogram from 07/25/2020. TECHNIQUE: Sonographic interrogation of the lower right breast was performed. FINDINGS: There is a bilobed cyst at the 6:30 location of the right breast approximately 4 cm from the nipple measuring 10 mm x 3 mm x 5 mm. This likely accounts for the mammographic density. No other abnormalities are seen. IMPRESSION: Simple cyst at the 6:30 location of the right breast 4 cm from the nipple, likely accounting for the mammographic density. The patient may return to routine annual screening mammography. ACR BI-RADS Category 2: Benign findings. Dictated by: Dictated on workstation # [id number]
== END ==
LOC: RAD 12:50
PROVIDERS: ATTEND Family Medicine
DX: N60.01 Solitary cyst of right breast (principal)
CPT/HCPCS: 76642; 77065; G0279

== ENCOUNTER → 2020-12-19 | Outpatient (CLI) | payer MEDICARE ==
--- NOTE | 2020-12-19 18:31 | Diagnostic Imaging Report ---
INDICATION: Cough and wheezing. Time of exam 3:57 p.m. No prior studies are available for comparison. The heart size is normal. The pulmonary vascularity is unremarkable. The lungs are clear. No infiltrate, effusion or pneumothorax is detected. IMPRESSION: No acute cardiopulmonary process is detected. Dictated by: Dictated on workstation # [id number]
== END ==
LOC: RAD 15:34
PROVIDERS: ATTEND Family Medicine
DX: R05 Cough (principal); R06.2 Wheezing
CPT/HCPCS: 71046

== ENCOUNTER 2020-12-29 10:10 | Inpatient (IN) | payer MEDICARE, OTHER ==
[~2020-12-29] VITALS: Ht 175.2 cm; Wt 89.8 kg
[2020-12-29] MEDS ORDERED: ONDANSETRON 4 MG/2 ML (SDV) Z0FRAN ONE (10:17)
--- NOTE | 2020-12-29 10:29 | ED Cardiac General ---
History of Present Illness General Stated Complaint: NAUSEA/ VOMMITTING/ FEELS DIZZY Source: patient, EMS Exam Limitations: no limitations History of Present Illness Date Seen by Provider: Dec 29, 2020 Time Seen by Provider: 10:13 Initial Comments Patient presents ER by EMS from home with chief complaint that she got up to the bathroom she felt dizzy. She did not pass out and she says she states she felt the world spinning around her. She had some nausea with small amounts of clear sputum vomited. No diarrhea fever chills sick contacts. She is had both vaccinations for Covid from [facility]. She is not having any shortness of air and does not use oxygen at baseline but EMS noted her oxygen sats to be 89% and put her on 4 L by nasal cannula. She is not a smoker and denies any cough. No history of atrial fib however on the monitor it was noted she had an irregular heart rate and a twelve-lead by EMS demonstrated atrial fibrillation. She denies any chest pain. EMS started a liter of fluids and she has received about 200 mL. Daughter gives further history that last week she was in Dr. Chandler's office and she thought that she heard a rattle in her chest and so had ordered a chest x-ray but apparently it failed to capture anything adventitious. Allergies and Home Medications Allergies Coded Allergies: No Known Drug Allergies (Unverified , 08/24/18) Home Medications Amlodipine Besylate 5 Mg Tablet, 5 MG PO HS, (Reported) Last Action: Last Taken Edited Cholecalciferol (Vitamin D3) 400 Unit Tablet, 400 UNIT PO DAILY, (Reported) Last Action: Last Taken Edited Diclofenac Sodium 50 Mg Tablet., 50 MG PO BID, (Reported) Last Action: Last Taken Edited Irbesartan/Hydrochlorothiazide 1 Each Tablet, 1 EACH PO DAILY, (Reported) Last Action: Last Taken Edited Magnesium 250 Mg Tablet, 250 MG PO DAILY, (Reported) Last Action: Last Taken Edited Misoprostol 100 Mcg Tablet, 100 MCG PO BID, (Reported) Last Action: Last Taken Edited Pantoprazole Sodium 40 Mg Tablet., 40 MG PO DAILY, (Reported) Last Action: Last Taken Edited Potassium 99 Mg Tablet, 99 MG PO DAILY, (Reported) Last Action: Last Taken Edited Patient Home Medication List Home Medication List Reviewed: Yes Review of Systems Review of Systems Constitutional: No chills, No diaphoresis; dizziness, malaise EENTM: No Blurred Vision, No Double Vision Respiratory: Denies Cough, Denies Shortness of Air Cardiovascular: Denies Chest Pain, Denies Lightheadedness Gastrointestinal: Denies Abdominal Pain, Denies Constipated, Denies Diarrhea; Nausea Musculoskeletal: No back pain, No joint pain Skin: No pruritus, No rash Psychiatric/Neurological: Denies Anxiety, Denies Depressed All Other Systems Reviewed Negative Unless Noted: Yes Past Eesavrx-Iubiyj-Aknokl Hx Patient Social History Alcohol Use: Denies Use Smoking Status: Never a Smoker 2nd Hand Smoke Exposure: No Recent Hopitalizations: No Immunizations Up To Date Date of Pneumonia Vaccine: Apr 20, 2018 Date of Influenza Vaccine: Apr 20, 2018 Seasonal Allergies Seasonal Allergies: No Past Medical History Surgeries: Yes (back sx, bilat TKR) Hysterectomy, Tonsillectomy Respiratory: No Cardiac: Yes Hypertension Neurological: No Genitourinary: No Gastrointestinal: Yes Polyps Musculoskeletal: Yes Arthritis Endocrine: Yes (diet controlled) Diabetes, Non-Insulin dep HEENT: No Cancer: No Psychosocial: No Integumentary: No Blood Disorders: No Physical Exam Vital Signs Vital Signs - First Documented 12/29/20 12/29/20 10:10 10:11 Temp 35.7 Pulse 138 Resp 20 B/P (MAP) 101/79 (86) Pulse Ox 89 O2 Delivery Room Air O2 Flow Rate 2.00 Capillary Refill : Height, Weight, BMI Height: 5'9.00" Weight: 192lbs. 0.0oz. 87.033876oy; 28.4 BMI Method: General Appearance: No Apparent Distress, WD/WN HEENT: PERRL/EOMI, Pharynx Normal, Moist Mucous Membranes Neck: Full Range of Motion, Normal Inspection Respiratory: Lungs Clear, Normal Breath Sounds, No Accessory Muscle Use, No Respiratory Distress Cardiovascular: Regular Rate, Rhythm, Normal Peripheral Pulses Gastrointestinal: Normal Bowel Sounds, Non Tender, Soft Extremity: Normal Capillary Refill, Normal Inspection Neurologic/Psychiatric: Oriented x3, No Motor/Sensory Deficits, Normal Mood/Affect Skin: Normal Color, Warm/Dry Focused Exam Sepsis Stage: Sepsis Possible Source: Pulmonary Lactate Level 12/29/20 14:40: Lactic Acid Level 1.55 Time of Focused Exam: 14:34 Respiratory: Lungs Clear, Normal Breath Sounds, No Accessory Muscle Use, Respiratory Distress (88% on room air after returning to the bathroom. 96% on 2 L.) Cardiovascular: Regular Rate, Rhythm, Normal Peripheral Pulses (110) Capillary Refill: NONE Skin: normal color, warm/dry Lactic Acid Level Laboratory Tests Test 12/29/20 14:40 Lactic Acid Level 1.55 MMOL/L (0.50-2.00) Within 3hrs of presentation: Admin fluids, Admin ABX, Blood cultures prior to ABX's, Focus exam, Lactate level Progress/Results/Core Measures Results/Orders Lab Results Laboratory Tests Test 12/29/20 10:20 12/29/20 10:25 12/29/20 10:35 12/29/20 14:40 Range/Units SARS-CoV-2 RNA (RT-PCR) Not Detected Not Detecte White Blood Count 7.5 4.3-11.0 10^3/uL Red Blood Count 4.96 3.80-5.11 10^6/uL Hemoglobin 14.3 11.5-16.0 g/dL Hematocrit 44 35-52 % Mean Corpuscular Volume 89 80-99 fL Mean Corpuscular Hemoglobin 29 25-34 pg Mean Corpuscular Hemoglobin Concent 33 32-36 g/dL Red Cell Distribution Width 12.9 10.0-14.5 % Platelet Count 227 130-400 10^3/uL Mean Platelet Volume 10.0 9.0-12.2 fL Immature Granulocyte % (Auto) 0 % Neutrophils (%) (Auto) 73 42-75 % Lymphocytes (%) (Auto) 19 12-44 % Monocytes (%) (Auto) 4 0-12 % Eosinophils (%) (Auto) 4 0-10 % Basophils (%) (Auto) 1 0-10 % Neutrophils # (Auto) 5.4 1.8-7.8 10^3/uL Lymphocytes # (Auto) 1.4 1.0-4.0 10^3/uL Monocytes # (Auto) 0.3 0.0-1.0 10^3/uL Eosinophils # (Auto) 0.3 0.0-0.3 10^3/uL Basophils # (Auto) 0.0 0.0-0.1 10^3/uL Immature Granulocyte # (Auto) 0.0 0.0-0.1 10^3/uL Prothrombin Time 13.5 12.2-14.7 SEC INR Comment 1.0 0.8-1.4 Activated Partial Thromboplast Time 31 24-35 SEC Sodium Level 142 135-145 MMOL/L Potassium Level 3.5 L 3.6-5.0 MMOL/L Chloride Level 105 98-107 MMOL/L Carbon Dioxide Level 20 L 21-32 MMOL/L Anion Gap 17 H 5-14 MMOL/L Blood Urea Nitrogen 18 7-18 MG/DL Creatinine 1.04 0.60-1.30 MG/DL Estimat Glomerular Filtration Rate 52 BUN/Creatinine Ratio 17 Glucose Level 167 H 70-105 MG/DL Calcium Level 9.1 8.5-10.1 MG/DL Corrected Calcium 8.9 8.5-10.1 MG/DL Magnesium Level 2.0 1.6-2.4 MG/DL Total Bilirubin 0.5 0.1-1.0 MG/DL Aspartate Amino Transf (AST/SGOT) 21 5-34 U/L Alanine Aminotransferase (ALT/SGPT) 27 0-55 U/L Alkaline Phosphatase 113 40-136 U/L Myoglobin 93.4 H 10.0-92.0 NG/ML Troponin I < 0.028 <0.028 NG/ML Total Protein 7.5 6.4-8.2 GM/DL Albumin 4.2 3.2-4.5 GM/DL Blood Gas Puncture Site LT RAD Blood Gas Patient Temperature 35.7 Arterial Blood pH 7.36 L 7.37-7.43 Arterial Blood Partial Pressure CO2 40 35-45 MMHG Arterial Blood Partial Pressure O2 60 L 79-93 MMHG Arterial Blood HCO3 23 23-27 MMOL/L Arterial Blood Total CO2 23.8 21.0-31.0 MMOL/L Arterial Blood Oxygen Saturation 91 L 94-100 % Arterial Blood Base Excess -2.4 -2.5-2.5 MMOL/L Guillermo Test YES-POS Blood Gas Ventilator Setting NO Blood Gas Inspired Oxygen 3 L Lactic Acid Level 1.55 0.50-2.00 MMOL/L My Orders Orders - ABDIRIZAK BATES Cbc With Automated Diff (12/29/20 10:20) Magnesium (12/29/20 10:20) Chest 1 View, Ap/Pa Only (12/29/20 10:20) Ekg Tracing (12/29/20 10:20) Comprehensive Metabolic Panel (12/29/20 10:20) Myoglobin Serum (12/29/20 10:20) Protime With Inr (12/29/20 10:20) Partial Thromboplastin Time (12/29/20 10:20) O2 (12/29/20 10:20) Monitor-Rhythm Ecg Trace Only (12/29/20 10:20) Ed Iv/Invasive Line Start (12/29/20 10:20) Troponin I (12/29/20 10:20) Aspirin Chewable Tablet (Baby Aspirin Ch (12/29/20 10:30) Ondansetron Injection (Zofran Injectio (12/29/20 10:30) Covid 19 Inhouse Test (12/29/20 10:20) Ed Iv/Invasive Line Start (12/29/20 10:20) Ns Iv 1000 Ml (Sodium Chloride 0.9%) (12/29/20 10:30) Diltiazem Injection (Cardizem Injection) (12/29/20 10:30) Arterial Blood Gas (12/29/20 10:38) Ct Angio Chest W (12/29/20 11:18) Apixaban Tablet (Eliquis Tablet) (12/29/20 11:30) Iohexol Injection (Omnipaque 350 Mg/Ml 1 (12/29/20 11:30) Received Contrast (Hold Metformin- Contr (12/29/20 11:30) Sodium Chloride Flush (Catheter Flush Sy (12/29/20 11:30) Ns (Ivpb) (Sodium Chloride 0.9% Ivpb Bag (12/29/20 11:30) Blood Culture (12/29/20 14:37) Lactic Acid Analyzer (12/29/20 14:37) Ceftriaxone (Rocephin) (12/29/20 14:45) Azithromycin Injection (Zithromax Inject (12/29/20 14:45) Medications Given in ED Current Medications Medications Dose Ordered Sig/Fantasma Route Start Time Stop Time Status Last Admin Dose Admin Apixaban 5 mg ONCE ONCE PO 12/29/20 11:30 12/29/20 11:31 DC 12/29/20 12:20 5 MG Aspirin 324 mg ONCE ONCE PO 12/29/20 10:30 12/29/20 10:31 DC 12/29/20 10:55 324 MG Diltiazem HCl 5 mg ONCE ONCE IVP 12/29/20 10:30 12/29/20 10:31 DC 12/29/20 10:59 5 MG Iohexol 100 ml ONCE ONCE IV 12/29/20 11:30 12/29/20 11:31 DC 12/29/20 13:31 75 ML Ondansetron HCl 4 mg ONCE ONCE IVP 12/29/20 10:30 12/29/20 10:31 DC 12/29/20 10:58 4 MG Sodium Chloride 10 ml NEEDED PRN IV 12/29/20 11:30 12/29/20 18:09 DC 12/29/20 13:31 10 ML Sodium Chloride 100 ml ONCE ONCE IV 12/29/20 11:30 12/29/20 11:31 DC 12/29/20 13:31 80 ML Vital Signs/I&O 12/29/20 12/29/20 10:10 10:11 Temp 35.7 Pulse 138 Resp 20 B/P (MAP) 101/79 (86) Pulse Ox 89 94 O2 Delivery Room Air Nasal Cannula O2 Flow Rate 2.00 Progress Progress Note : Time: 14:19 Progress Note Hypoxia, we are maintaining her oxygen saturations on 2 to 3 L by nasal cannula. ABG demonstrates hypoxia. Suspect pneumonia versus PE. CT angiogram was obtained demonstrating some groundglass appearance to the bilateral lower lobes. COVID-19 is negative. Diagnostic Imaging Diagonstic Imaging: Xray Plain Films/CT/US/NM/MRI: chest Comments [facility]. [place], [place] NAME: SOLITARIO [facility]AL [facility] REC#: [id number] PT STATUS: REG ER : 1950 PHYSICIAN: ABDIRIZAK BATES MD ADMIT DATE: 12/29/20/ER Draft Date of Exam:12/29/20 CHEST 1 VIEW, AP/PA ONLY HISTORY: Chest pain. COMPARISON: 12/19/2020. TECHNIQUE: Frontal view of the chest. FINDINGS: Lung volumes are borderline low compared to the prior exam. There is mildly increased airspace opacity in the lung bases. There is no pleural effusion or pneumothorax. The cardiac silhouette is normal in size. IMPRESSION: 1. Increased airspace opacities in the lung bases, may be due to atelectasis or infiltrate. Dictated on workstation # [id number] Dict: 12/29/20 1156 Trans: 12/29/20 1200 AS6 [id number] Interpreted by: KARTIK BRADLEY MD Electronically signed by: Reviewed: Reviewed by Me Diagonstic Imaging: CT (Angiogram) Plain Films/CT/US/NM/MRI: chest Comments [facility] [place] [place] NAME: SOLITARIO [facility] REC#: [id number] PT STATUS: REG ER : 1950 PHYSICIAN: ABDIRIZAK BATES MD ADMIT DATE: 12/29/20/ER Draft Date of Exam:12/29/20 CT ANGIO CHEST W PROCEDURE: CT angiography of the chest with contrast. TECHNIQUE: Multiple contiguous axial images were obtained through the chest after uneventful bolus administration of intravenous contrast. 3D reconstructed CTA MIP acquisitions were also performed. Auto Exposure Controls were utilized during the CT exam to meet ALARA standards for radiation dose reduction. INDICATION: Dizziness, diaphoresis, abnormal lung sounds, wheezing, high probability PE COMPARISON: Chest x-ray from the same day FINDINGS: The pulmonary arteries or diagnostic to the proximal segmental level. There is motion artifact, particularly in the lung bases, which results in suboptimal evaluation. No filling defect is seen to indicate a pulmonary embolus. There is no evidence of right heart strain. The heart is mildly large. There is no pericardial effusion. No significant mediastinal adenopathy is seen. There is no axillary adenopathy. The aorta demonstrates mild atherosclerosis. There is focal groundglass and airspace opacity in the lower lobes, left greater than right. No pneumothorax is seen. There is no pleural effusion. No central endobronchial lesion is seen. No acute osseous abnormality is seen. There are degenerative changes in the spine. Imaged portions of the upper abdomen demonstrate no acute abnormality. IMPRESSION: 1. No pulmonary embolus is seen. 2. Groundglass and airspace opacities in the lower lobes may represent infection and/or atelectasis. Dictated on workstation # [id number] Dict: 12/29/20 1345 Trans: 12/29/20 1353 CVB [id number] Interpreted by: KARTIK BRADLEY MD Electronically signed by: Reviewed: Reviewed by Me Departure Communication (Admissions) Time/Spoke to Admitting Phy: 14:[address] Sanchez and she would like a consult to Dr. Shelby, cardiology. She would like the patient on the stepdown unit. Time/Spoke to Consulting Phy: 15:52 Discussed the case with Dr. Shelby, cardiology and he is grateful for the consult. Impression Primary Impression: Pneumonia Qualified Codes: J18.9 - Pneumonia, unspecified organism Additional Impressions: Sepsis Qualified Codes: A41.9 - Sepsis, unspecified organism; R65.20 - Severe sepsis without septic shock; J96.01 - Acute respiratory failure with hypoxia Acute respiratory failure with hypoxemia Disposition: ADMITTED INPATIENT Condition: Stable Admissions Decision to Admit Reason: Admit from ER (General) Decision to Admit/Date: Dec 29, 2020 Time/Decision to Admit Time: 11:00 Departure-Patient Inst. Referrals: ARIADNA CHANDLER DO (PCP/Family) Primary Care Physician ABDIRIZAK BATES Dec 29, 2020 10:29
[2020-12-29] MEDS ORDERED: ASPIRIN 81 MG CHEW (CHILDREN'S ASA) PO ONE (10:30)
[2020-12-29] MEDS ORDERED: NS IV 1000 ML 1,000 ML IV SCH (10:30)
[2020-12-29] MEDS ORDERED: ONDANSETRON 4 MG/2 ML (SDV) Z0FRAN IVP ONE (10:30)
[2020-12-29 10:36] LABS: BASOPHILS % (AUTO) 1 % (0-10); EOSINOPHILS # (AUTO) 0.3 10^3/uL (0.0-0.3); EOSINOPHILS % (AUTO) 4 % (0-10); HEMATOCRIT 44 % (35-52); HEMOGLOBIN 14.3 g/dL (11.5-16.0); LYMPHOCYTES # (AUTO) 1.4 10^3/uL (1.0-4.0); LYMPHOCYTES % (AUTO) 19 % (12-44); MEAN CORPUSCULAR HEMOGLOBIN 29 pg (25-34); MEAN CORPUSCULAR HGB CONC 33 g/dL (32-36); MEAN CORPUSCULAR VOLUME 89 fL (80-99); MONOCYTES # (AUTO) 0.3 10^3/uL (0.0-1.0); MONOCYTES % (AUTO) 4 % (0-12); NEUTROPHILS # (AUTO) 5.4 10^3/uL (1.8-7.8); NEUTROPHILS % (AUTO) 73 % (42-75); PLATELET COUNT 227 10^3/uL (130-400); WHITE BLOOD COUNT 7.5 10^3/uL (4.3-11.0)
[2020-12-29 10:44] LABS: ABG BASE EXCESS -2.4 MMOL/L (-2.5-2.5); ABG OXYGEN SATURATION 91 % (94-100); ABG PCO2 40 MMHG (35-45); ABG PH 7.36 (7.37-7.43); ABG PO2 60 MMHG (79-93); ABG TCO2 23.8 MMOL/L (21.0-31.0); ALLENS TEST YES-POS; INSPIRED O2 3 L; PATIENT TEMP 35.7; VENTILATOR NO
[2020-12-29 10:47] LABS: ALBUMIN 4.2 GM/DL (3.2-4.5)
[2020-12-29 10:48] LABS: POTASSIUM 3.5 MMOL/L (3.6-5.0)
[2020-12-29 10:49] LABS: CALCIUM 9.1 MG/DL (8.5-10.1); PROTHROMBIN TIME PATIENT 13.5 SEC (12.2-14.7)
[2020-12-29 10:50] LABS: TOTAL PROTEIN 7.5 GM/DL (6.4-8.2)
[2020-12-29 10:52] LABS: BILIRUBIN,TOTAL 0.5 MG/DL (0.1-1.0)
[2020-12-29 10:54] LABS: CREATININE SERUM 1.04 MG/DL (0.60-1.30)
[2020-12-29] MEDS ORDERED: APIXABAN 5 MG (ELIQUIS) TABLET PO ONE ×2 (11:30→16:00)
[2020-12-29] MEDS ORDERED: IOHEXOL 350 MG/ML 100 ML (OMNIPAQUE 350) VIAL IV ONE (11:30)
[2020-12-29] MEDS ORDERED: NS 100 ML (IVPB) BAG IV ONE (11:30)
[2020-12-29] MEDS ORDERED: HOLD METFORMIN - RECEIVED CONTRAST 20 ML VIAL IV SCH (11:30)
[2020-12-29] MEDS ORDERED: CATHETER FLUSH 10 ML SYR IV PRN ×2 (11:30→18:15)
--- NOTE | 2020-12-29 12:01 | Diagnostic Imaging Report ---
HISTORY: Chest pain. COMPARISON: 12/19/2020. TECHNIQUE: Frontal view of the chest. FINDINGS: Lung volumes are borderline low compared to the prior exam. There is mildly increased airspace opacity in the lung bases. There is no pleural effusion or pneumothorax. The cardiac silhouette is normal in size. IMPRESSION: 1. Increased airspace opacities in the lung bases, may be due to atelectasis or infiltrate. Dictated by: Dictated on workstation # [id number]
--- NOTE | 2020-12-29 13:53 | Diagnostic Imaging Report ---
PROCEDURE: CT angiography of the chest with contrast. TECHNIQUE: Multiple contiguous axial images were obtained through the chest after uneventful bolus administration of intravenous contrast. 3D reconstructed CTA MIP acquisitions were also performed. Auto Exposure Controls were utilized during the CT exam to meet ALARA standards for radiation dose reduction. INDICATION: Dizziness, diaphoresis, abnormal lung sounds, wheezing, high probability PE COMPARISON: Chest x-ray from the same day FINDINGS: The pulmonary arteries or diagnostic to the proximal segmental level. There is motion artifact, particularly in the lung bases, which results in suboptimal evaluation. No filling defect is seen to indicate a pulmonary embolus. There is no evidence of right heart strain. The heart is mildly large. There is no pericardial effusion. No significant mediastinal adenopathy is seen. There is no axillary adenopathy. The aorta demonstrates mild atherosclerosis. There is focal groundglass and airspace opacity in the lower lobes, left greater than right. No pneumothorax is seen. There is no pleural effusion. No central endobronchial lesion is seen. No acute osseous abnormality is seen. There are degenerative changes in the spine. Imaged portions of the upper abdomen demonstrate no acute abnormality. IMPRESSION: 1. No pulmonary embolus is seen. 2. Groundglass and airspace opacities in the lower lobes may represent infection and/or atelectasis. Dictated by: Dictated on workstation # [id number]
[2020-12-29] MEDS ORDERED: AZITHROMYCIN INJECTION 500 MG in NS (IVPB) 250 ML IV ONE (14:45)
[2020-12-29] MEDS ORDERED: cefTRIAXone 1,000 MG in WATER (STERILE) FOR INJECTION 10 ML IV ONE (14:45)
--- NOTE | 2020-12-29 15:46 | History & Physicial ---
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 SHE HAD APPARENTLY NOT BEEN FEELING WELL AN OUTPATIENT, WAS EVALUATED AND RENDERED TREATMENT, BUT SHE CONTINUED TO FEEL POORLY, HAD WORSENING SHORTNESS OF BREATH AND PRESENTED TO THE EMERGENCY DEPARTMENT WHERE SHE WAS FOUND TO BE SEPTIC WITH PNEUMONIA AND HYPOXIA. SOLITARIO STATES THAT SHE GOT UP TO THE RESTROOM THIS MORNING, HAD DIZZINESS ON STANDING, AND WAS SHORT OF BREATH AND DIZZY COMING BACK FROM THE RESTROOM. SHORTLY AFTER 9AM HER FAMILY CALLED THE AMBULANCE DUE TO HER SEVERE FATIGUE, DIZZINESS, AND WEAKNESS. EMS ECG SHOWED AFIB - THIS IS NEW FOR THE PATIENT. SHE DENIES SENSATION OF PALPITATIONS, SHE ADMITS TO SEVERE SNORING, HAS NOT BEEN TESTED FOR SLEEP APNEA Date of Admission Dec 29, 2020 at 14:40 Date Seen by a Provider: Dec 29, 2020 Time Seen by a Provider: 16:20 I consulted on this patient on 12/29/20 15:40 Attending Physician Tanika Sanchez MD Admitting Physician Sushila Meng DO Consult CARDIOLOGY Allergies and Home Medications Allergies Coded Allergies: No Known Drug Allergies (Unverified , 08/24/18) Home Medications Amlodipine Besylate 5 Mg Tablet, 5 MG PO HS, (Reported) Last Action: Held Cholecalciferol (Vitamin D3) 400 Unit Tablet, 400 UNIT PO DAILY, (Reported) Last Action: Held Diclofenac Sodium 50 Mg Tablet.dr, 50 MG PO BID, (Reported) Last Action: Held Irbesartan/Hydrochlorothiazide 1 Each Tablet, 1 EACH PO DAILY, (Reported) Last Action: Held Magnesium 250 Mg Tablet, 250 MG PO DAILY, (Reported) Last Action: Held Misoprostol 100 Mcg Tablet, 100 MCG PO BID, (Reported) Last Action: Held Pantoprazole Sodium 40 Mg Tablet.dr, 40 MG PO DAILY, (Reported) Last Action: Reviewed Potassium 99 Mg Tablet, 99 MG PO DAILY, (Reported) Last Action: Held Patient Home Medication List Home Medication List Reviewed: Yes Past Obseyyj-Czmiaw-Bbtjkf Hx Patient Social History Marrital Status: Number of Children: 2 Number of living children: 2 Living Status: LIVES AT WITH SPOUSE IN [place] Employed/Student: retired Smoking Status: Never a Smoker 2nd Hand Smoke Exposure: Yes Recent Hopitalizations: No Immunizations Up To Date Date of Pneumonia Vaccine: Apr 20, 2018 Date of Influenza Vaccine: Apr 20, 2018 Seasonal Allergies Seasonal Allergies: No Surgeries Yes (back sx, bilat TKR) Hysterectomy, Tonsillectomy Respiratory No Cardiovascular Yes Hypertension Neurological No Reproductive System Female Reproductive Disorders: Denies 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 Genitourinary No Gastrointestinal Yes Polyps Musculoskeletal Yes Arthritis Endocrine History of Endocrine Disorders: Yes (diet controlled) Endocrine Disorders: Hypothyroidsim, Diabetes, Non-Insulin dep HEENT History of HEENT Disorders: No Cancer No Psychosocial History of Psychiatric Problem: No Integumentary History of Skin or Integumenta: No Blood Transfusions History of Blood Disorders: No Reviewed Nursing Assessment Reviewed/Agree w Nursing PMH: Yes Family Medical History Significant Family History: Cancer (COLON CANCER), Hypertension Review of Systems Constitutional: No chills; dizziness; No fever; malaise, weakness EENTM: No hearing loss, No hoarseness, No throat pain, No throat swelling Respiratory: No cough; dyspnea on exertion, short of breath Cardiovascular: No chest pain, No palpitations Gastrointestinal: abdominal pain (EPIGASTRIC); No nausea, No vomiting Genitourinary: no symptoms reported Musculoskeletal: joint pain (CHRONIC), muscle weakness Skin: no symptoms reported Psychiatric/Neurological: Denies Anxiety, Denies Depressed; Weakness (GENERALIZED) All Other Systems Reviewed Negative Unless Noted: Yes Physical Exam Vital Signs Vital Signs - First Documented 12/29/20 12/29/20 12/29/20 10:10 10:11 19:14 Temp 35.7 Pulse 138 Resp 20 B/P (MAP) 101/79 (86) Pulse Ox 89 O2 Delivery Room Air O2 Flow Rate 2.00 FiO2 21 Capillary Refill : NONE Height, Weight, BMI Height: 5'9.00" Weight: 192lbs. 0.0oz. [id number]; 29.00 BMI Method: General Appearance: WD/WN, Other (APPEARS ILL, BUT NOT IN DISTRESS) Eyes: Bilateral Eye Normal Inspection, Bilateral Eye PERRL, Bilateral Eye EOMI HEENT: PERRL/EOMI, Pharynx Normal, Other (PARTIAL CERUMEN OBSTRUCTION BILATERALLY) Neck: Full Range of Motion, Normal Inspection, Non Tender, Supple Respiratory: Chest Non Tender, Crackles (BASES BILATERALLY), Decreased Breath Sounds (BASES) Cardiovascular: Regular Rate, Rhythm, No Edema, No JVD, Normal Peripheral Pulses Gastrointestinal: Normal Bowel Sounds, No Organomegaly, No Pulsatile Mass, Soft, Tenderness (SLIGHTLY TTP OVER EPIGASTRIUM, FULL BLADDER) Rectal: Deferred Back: Normal Inspection, No CVA Tenderness, No Vertebral Tenderness Extremity: Normal Capillary Refill, Normal Inspection, Normal Range of Motion, Non Tender, No Calf Tenderness, No Pedal Edema Neurologic/Psychiatric: Alert, Oriented x3, No Motor/Sensory Deficits, Normal 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 There is motion artifact, particularly in the lung bases, which results in suboptimal odette luation. No filling defect is seen to indicate a pulmonary embolus. There is no evidence of right heart strain. The heart is mildly large. There is no pericardial effusion. No significant mediastinal adenopathy is seen. There is no axillary adenopathy. The aorta demonstrates mild atherosclerosis. There is focal groundglass and airspace opacity in the lower lobes, left greater than right. No pneumothorax is seen. There is no pleural effusion. No central endobronchial lesion is seen. No acute osseous abnormality is seen. There are degenerative changes in the spine. Imaged portions of the upper abdomen demonstrate no acute abnormality. IMPRESSION: 1. No pulmonary embolus is seen. 2. Groundglass and airspace opacities in the lower lobes may represent infection and/or atelectasis. - PT STARTED ON SEPSIS PROTOCOL, PNEUMONIA PROTOCOL, MONITOR CXR SERIALLY, MONITOR LABS, - OXYGEN VIA NC, TAPER ABLE. NEW ONSET ATRIAL FIBRILLATION - CONSULT TO CARDIOLOGY - ELIQUIS INITIATED IN HOSPITAL - [facility] CONVERTED PT TO NORMAL RATE HYPOKALEMIA - IV SUPPLEMENTATION HYPERTENSION - CHRONIC - CHECK MEDS, WILL HOLD HOME MEDS UNTIL WE GET RATE CONTROLLED AND CONSIDER ADJUSTMENT OF HOME REGIMEN BASED ON TREATMENT FOR AFIB. GERD - PROTONIX BID HYPOTHYROIDISM - CHECK TSH, FREE T4 DIABETES MELLITUS - DIET CONTROLLED - DIABETIC DIET GI PROPHYLAXIS WITH PROTONIX, AND PROBIOTICS DVT PROPHYLAXIS WITH ELIQUIS AND SCD'S ANTICIPATE AT LEAST 48 - 72 HOURS IN HOSPITAL FOR TREATMENT OF PNEUMONIA, AND NEW ONSET AFIB Admission Diagnosis SEPSIS PNEUMONIA NEW ONSET ATRIAL FIBRILLATION DYSPNEA HYPOKALEMIA HYPERTENSION GERD HYPOTHYROIDISM DIABETES MELLITUS - DIET CONTROLLED Admission Status: Inpatient Order (span 2 midnights) Reason for Inpatient Admission: INPATIENT ADMISSION FOR SEPSIS WITH PNEUMONIA WILL REQUIRE AT LEAST 48 -72 HOURS IN THE HOSPITAL FOR STABILIZATION AND MEDICATION ADMINISTRATION AND ADJUSTMENTS WELL WEANING OF OXYGEN TANIKA SANCHEZ MD Dec 29, 2020 15:46
[2020-12-29] MEDS ORDERED: ONDANSETRON 4 MG/2 ML (SDV) Z0FRAN IV PRN (18:15)
[2020-12-29 18:18] VITALS: BP 136/78
[2020-12-29] MEDS: LACTATED RINGERS 1,000 ML IV SCH (18:47)
[2020-12-29 19:14] VITALS: BP 136/78
[2020-12-29] MEDS ORDERED: RT-ALBUTEROL SULF 2.5 MG/3 ML PRE-MIX VIAL INH PRN (19:30)
[2020-12-29 20:00] VITALS: BP 137/67
[2020-12-29] MEDS: APIXABAN 5 MG (ELIQUIS) TABLET PO SCH (20:48)
[2020-12-30] VITALS (7 sets, daily range): BP systolic 131–150; BP diastolic 65–87
[2020-12-30] MEDS: LACTATED RINGERS 1,000 ML IV SCH ×3 (02:26→18:26)
[2020-12-30 03:58] LABS: BASOPHILS % (AUTO) 0 % (0-10); EOSINOPHILS # (AUTO) 0.3 10^3/uL (0.0-0.3); EOSINOPHILS % (AUTO) 3 % (0-10); HEMATOCRIT 37 % (35-52); HEMOGLOBIN 11.8 g/dL (11.5-16.0); LYMPHOCYTES % (AUTO) 23 % (12-44); MEAN CORPUSCULAR HEMOGLOBIN 28 pg (25-34); MEAN CORPUSCULAR HGB CONC 32 g/dL (32-36); MEAN CORPUSCULAR VOLUME 90 fL (80-99); MEAN PLATELET VOLUME 10.6 fL (9.0-12.2); MONOCYTES # (AUTO) 0.5 10^3/uL (0.0-1.0); MONOCYTES % (AUTO) 6 % (0-12); NEUTROPHILS # (AUTO) 5.8 10^3/uL (1.8-7.8); NEUTROPHILS % (AUTO) 67 % (42-75); PLATELET COUNT 204 10^3/uL (130-400); WHITE BLOOD COUNT 8.6 10^3/uL (4.3-11.0)
[2020-12-30 04:11] LABS: CHLORIDE 108 MMOL/L (98-107); POTASSIUM 3.9 MMOL/L (3.6-5.0); SODIUM 143 MMOL/L (135-145)
[2020-12-30 04:12] LABS: CALCIUM 8.5 MG/DL (8.5-10.1)
[2020-12-30 04:13] LABS: GLUCOSE 100 MG/DL (70-105)
[2020-12-30 04:14] LABS: CARBON DIOXIDE 22 MMOL/L (21-32)
[2020-12-30 04:17] LABS: CREATININE SERUM 0.86 MG/DL (0.60-1.30); GFR ESTIMATED > 60
[2020-12-30 04:18] LABS: BUN/CREATININE RATIO 16
--- NOTE | 2020-12-30 08:18 | Diagnostic Imaging Report ---
EXAMINATION: Chest 1 view HISTORY: Pneumonia. COMPARISON: Chest radiograph on 12/29/2020. FINDINGS: The lung volumes are normal. Stable opacities are seen in the left lung base with improved aeration in the right lung base. No large pleural effusion or pneumothorax is seen. The cardiomediastinal silhouette is normal in size and contour. No acute osseous abnormality is seen. IMPRESSION: 1. Improved aeration in the right lung base with stable opacities in the left lung base, which may represent infection and/or atelectasis.. Dictated by: Dictated on workstation # [id number]
[2020-12-30] MEDS: ACETAMINOPHEN 325 MG TABLET PO PRN (08:51)
[2020-12-30] MEDS: APIXABAN 5 MG (ELIQUIS) TABLET PO SCH ×2 (08:51→20:27)
[2020-12-30] MEDS: AZITHROMYCIN 500 MG/NS 250 ML IVPB IV SCH ×2 (08:52)
[2020-12-30] MEDS ORDERED: dilTIAZem120 MG (CARDIZEM CD) CAP PO SCH (09:15)
--- NOTE | 2020-12-30 09:24 | Progress Note ---
Subjective Subjective Date Seen by Provider: Dec 30, 2020 Time Seen by Provider: 09:20 PT REPORTS THAT SHE IS FEELING A LITTLE BIT BETTER TODAY. SHE DOES COMPLAIN OF CHEST PAIN WITH MOVEMENT OF CHEST/TENDER TO TOUCH IN CENTER OF CHEST, DOES HAVE SOME SHORTNESS OF BREATH, BUT IT HAS IMPROVED FROM ADMISSION. SHE DENIES NAUSEA. SHE ALSO COMPLAINS OF HAND PAIN - WORSE ON RIGHT THAN LEFT SHE REPORTS THAT SHE HAD A LOT OF DRY-HEAVING PRIOR TO CALLING THE AMBULANCE YESTERDAY. Review of Systems General: No Chills, No Fatigue, No Malaise HEENT: No Visual Changes, No Dysphasia Pulmonary: Dyspnea; No Cough Cardiovascular: No: Chest Pain Gastrointestinal: No: Nausea, Abdominal Pain Musculoskeletal: hand pain (RIGHT GREATER THAN LEFT) Neurological: Weakness; No: Confusion All Other Systems Reviewed All Other Systems Reviewed: Yes Objective Exam Vital Signs Vital Signs - First Documented 12/29/20 12/29/20 12/29/20 10:10 10:11 19:14 Temp 35.7 Pulse 138 Resp 20 B/P (MAP) 101/79 (86) Pulse Ox 89 O2 Delivery Room Air O2 Flow Rate 2.00 FiO2 21 Capillary Refill : Less Than 3 Seconds General Appearance: WD/WN, Other (APPEARS ILL, BUT NOT IN DISTRESS) Eyes: Bilateral Eye Normal Inspection, Bilateral Eye PERRL, Bilateral Eye EOMI HEENT: PERRL/EOMI, Pharynx Normal, Other (PARTIAL CERUMEN OBSTRUCTION BILATERALLY) Neck: Full Range of Motion, Normal Inspection, Non Tender, Supple Respiratory: Chest Non Tender, Crackles (BASES BILATERALLY), Decreased Breath Sounds (BASES) Cardiovascular: Regular Rate, Rhythm, No Edema, No JVD, Normal Peripheral Pulses Gastrointestinal: Normal Bowel Sounds, No Organomegaly, No Pulsatile Mass, Soft, Tenderness (SLIGHTLY TTP OVER EPIGASTRIUM, FULL BLADDER) Rectal: Deferred Back: Normal Inspection, No CVA Tenderness, No Vertebral Tenderness Extremity: Normal Capillary Refill, Normal Inspection, Normal Range of Motion, Non Tender, No Calf Tenderness, No Pedal Edema Neurologic/Psychiatric: Alert, Oriented x3, No Motor/Sensory Deficits, Normal 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, 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 Norm as Tested Skin: Normal Color, Warm/Dry Lymphatic: No Adenopathy Results Lab Laboratory Tests 12/29/20 10:20: SARS-CoV-2 RNA (RT-PCR) Not Detected 12/29/20 10:25: White Blood Count 7.5, Red Blood Count 4.96, Hemoglobin 14.3, Hematocrit 44, Mean Corpuscular Volume 89, Mean Corpuscular Hemoglobin 29, Mean Corpuscular Hemoglobin Concent 33, Red Cell Distribution Width 12.9, Platelet Count 227, Mean Platelet Volume 10.0, Immature Granulocyte % (Auto) 0, Neutrophils (%) (Au to) 73, Lymphocytes (%) (Auto) 19, Monocytes (%) (Auto) 4, Eosinophils (%) (Auto) 4, Basophils (%) (Auto) 1, Neutrophils # (Auto) 5.4, Lymphocytes # (Auto) 1.4, Monocytes # (Auto) 0.3, Eosinophils # (Auto) 0.3, Basophils # (Auto) 0.0, Immature Granulocyte # (Auto) 0.0, Prothrombin Time 13.5, INR Comment 1.0, Activated Partial Thromboplast Time 31, Sodium Level 142, Potassium Level 3.5L, Chloride Level 105, Carbon Dioxide Level 20L, Anion Gap 17H, Blood Urea Nitrogen 18, Creatinine 1.04, Estimat Glomerular Filtration Rate 52, BUN/Creatinine Ratio 17, Glucose Level 167H, Calcium Level 9.1, Corrected Calcium 8.9, Magnesium Level 2.0, Total Bilirubin 0.5, Aspartate Amino Transf (AST/SGOT) 21, Alanine Aminotransferase (ALT/SGPT) 27, Alkaline Phosphatase 113, Myoglobin 93.4H, Troponin I < 0.028, Total Protein 7.5, Albumin 4.2 12/29/20 10:35: Blood Gas Puncture Site LT RAD, Blood Gas Patient Temperature 35.7, Arterial Blood pH 7.36L, Arterial Blood Partial Pressure CO2 40, Arterial Blood Partial Pressure O2 60L, Arterial Blood HCO3 23, Arterial Blood Total CO2 23.8, Arterial Blood Oxygen Saturation 91L, Arterial Blood Base Excess -2.4, Guillermo Test YES- POS, Blood Gas Ventilator Setting NO, Blood Gas Inspired Oxygen 3 L 12/29/20 14:40: Lactic Acid Level 1.55 12/30/20 03:35: White Blood Count 8.6, Red Blood Count 4.15, Hemoglobin 11.8, Hematocrit 37, Mean Corpuscular Volume 90, Mean Corpuscular Hemoglobin 28, Mean Corpuscular Hemoglobin Concent 32, Red Cell Distribution Width 13.1, Platelet Count 204, Mean Platelet Volume 10.6, Immature Granulocyte % (Auto) 0, Neutrophils (%) (Auto) 67, Lymphocytes (%) (Auto) 23, Monocytes (%) (Auto) 6, Eosinophils (%) (Auto) 3, Basophils (%) (Auto) 0, Neutrophils # (Auto) 5.8, Lymphocytes # (Auto) 2.0, Monocytes # (Auto) 0.5, Eosinophils # (Auto) 0.3, Basophils # (Auto) 0.0, Immature Granulocyte # (Auto) 0.0, Sodium Level 143, Potassium Level 3.9, Chloride Level 108H, Carbon Dioxide Level 22, Anion Gap 13, Blood Urea Nitrogen 14, Creatinine 0.86, Estimat Glomerular Filtration Rate > 60, BUN/Creatinine Ratio 16, Glucose Level 100, Calcium Level 8.5 Assessment/Plan Assessment/Plan Admission Dx SEPSIS PNEUMONIA NEW ONSET ATRIAL FIBRILLATION DYSPNEA HYPOKALEMIA HYPERTENSION GERD HYPOTHYROIDISM DIABETES MELLITUS - DIET CONTROLLED Assessment and Plan SEPSIS PNEUMONIA NEW ONSET ATRIAL FIBRILLATION DYSPNEA HYPOKALEMIA HYPERTENSION GERD HYPOTHYROIDISM DIABETES MELLITUS - DIET CONTROLLED SEPSIS DUE TO PNEUMONIA - IMAGING FOLLOWS: CT ANGIO CHEST - INDICATION: Dizziness, diaphoresis, abnormal lung sounds, wheezing, high probability PE The pulmonary arteries or diagnostic to the proximal segmental level. There is motion artifact, particularly in the lung bases, which results in suboptimal evaluation. No filling defect is seen to indicate a pulmonary embolus. There is no evidence of right heart strain. The heart is mildly large. There is no pericardial effusion. No significant mediastinal adenopathy is seen. There is no axillary adenopathy. The aorta demonstrates mild atherosclerosis. There is focal groundglass and airspace opacity in the lower lobes, left greater than right. No pneumothorax is seen. There is no pleural effusion. No central endobronchial lesion is seen. No acute osseous abnormality is seen. There are degenerative changes in the spine. Imaged portions of the upper abdomen demonstrate no acute abnormality. IMPRESSION: 1. No pulmonary embolus is seen. 2. Groundglass and airspace opacities in the lower lobes may represent infection and/or atelectasis. - PT STARTED ON SEPSIS PROTOCOL, PNEUMONIA PROTOCOL, MONITOR CXR SERIALLY, MONITOR LABS, CHEST 1 VIEW, AP/PA ONLY - WILL DECREASE DOSE OF IV FLUIDS FROM 150ML/HR TO 75ML/HR Chest 1 view - COMPARISON: Chest radiograph on 12/29/2020. FINDINGS: The lung volumes are normal. Stable opacities are seen in the left lung base with improved aeration in the right lung base. No large pleural effusion or pneumothorax is seen. The cardiomediastinal silhouette is normal in size and contour. No acute osseous abnormality is seen. IMPRESSION: 1. Improved aeration in the right lung base with stable opacities in the left lung base, which may represent infection and/or atelectasis.. - OXYGEN VIA NC, TAPER ABLE. NEW ONSET ATRIAL FIBRILLATION - CONSULT TO CARDIOLOGY - ELIQUIS INITIATED IN HOSPITAL - CARDIZEM CONVERTED PT TO NORMAL RATE - WILL CONTINUE WITH ORAL CARDIZEM HYPOKALEMIA - IV SUPPLEMENTATION HYPERTENSION - CHRONIC - CHECK MEDS, WILL HOLD HOME MEDS UNTIL WE GET RATE CONTROLLED AND CONSIDER ADJUSTMENT OF HOME REGIMEN BASED ON TREATMENT FOR AFIB. GERD - PROTONIX BID HYPOTHYROIDISM - CHECK TSH, FREE T4 DIABETES MELLITUS - DIET CONTROLLED - DIABETIC DIET GI PROPHYLAXIS WITH PROTONIX, AND PROBIOTICS DVT PROPHYLAXIS WITH ELIQUIS AND SCD'S ANTICIPATE AT LEAST 48 - 72 HOURS IN HOSPITAL FOR TREATMENT OF PNEUMONIA, AND NEW ONSET AFIB Admission Dx SEPSIS PNEUMONIA NEW ONSET ATRIAL FIBRILLATION DYSPNEA HYPOKALEMIA HYPERTENSION GERD HYPOTHYROIDISM DIABETES MELLITUS - DIET CONTROLLED Clinical Quality Measures Admission Status Admission Dx SEPSIS PNEUMONIA NEW ONSET ATRIAL FIBRILLATION DYSPNEA HYPOKALEMIA HYPERTENSION GERD HYPOTHYROIDISM DIABETES MELLITUS - DIET CONTROLLED TANIKA MARIE MD Dec 30, 2020 09:24
[2020-12-30] MEDS: PANTOPRAZOLE 40 MG (PROTONIX) TAB PO SCH ×2 (10:24→20:27)
[2020-12-30] MEDS: cefTRIAXone 1,000 MG/SWFI 10 ML IV PUSH IV SCH ×2 (10:25)
[2020-12-30 10:59] LABS: FREE T4 (FREE THYROXINE) 1.08 NG/DL (0.70-1.48)
[2020-12-30] MEDS: DICLOFENAC 1% GEL 100 GM (VOLTAREN) TUBE TOP SCH ×4 (11:43→20:27)
[2020-12-30] MEDS ORDERED: DICLOFENAC 1% GEL 100 GM (VOLTAREN) TUBE TOP SCH (13:00)
--- NOTE | 2020-12-30 13:41 | Consultation-Cardiology ---
HPI-Cardiology Cardiology Consultation: Date of Consultation 12/30/20 Date of Admission Attending Physician Mague Sanchez MD Admitting Physician Sushila Chandler DO Consulting Physician ALLA MALIK JR, MD HPI: Time Seen by a Provider: 13:36 Chief Complaint: Reason for consultation: Atrial fibrillation. I had the pleasure of seeing Lyric on the cardiac step down unit in [address] this afternoon. She has no previous history of cardiac disease. She was in her usual state of health until yesterday when she woke up in the morning and sat on the edge of the bed as she always does before she stands up. She suddenly felt very dizzy and the room was spinning around. She broke out into a sweat. She needed to go the bathroom so she got up and use the bathroom then went back to her bed. Then she developed nausea and dry heaves. She called her daughter who came over to check on her and then they decided to call 911. She was brought to her local emergency room and found to have possible pneumonia. At some point in time, she also reportedly developed atrial fibrillation. Since the outside hospital was full, she was transferred to our hospital for further evaluation. Overnight she was in sinus rhythm but late this morning, she went back into atrial fibrillation. When I spoke to the patient she denies any previous history of palpitations. However, this afternoon she feels as though her heart is beating fast. She denies any chest discomfort, dyspnea, paroxysmal nocturnal dyspnea, orthopnea, or syncope. She does get some mild ankle edema that usually resolves by the following day. This does not happen very often. She does not smoke. She lives at home with her . Review of Systems-Cardiology Review of Systems Other comments Review of 10 organ systems is as per the history of present illness, otherwise negative. All Other Systems Reviewed Negative Unless Noted: Yes [id number] Hx Patient Social History Marrital Status: Number of Children: 2 Number of living children: 2 Living Status: LIVES AT WITH [facility]OU[facility] IN [place] Employed/Student: retired Smoking Status: Never a Smoker 2nd Hand Smoke Exposure: Yes Have you traveled recently?: No Alcohol Use?: No Pt feels they are or have been: No Immunizations Up To Date Date of Pneumonia Vaccine: Apr 20, 2018 Date of Influenza Vaccine: Apr 20, 2018 Past Medical History PMH As described under Assessment. Family Medical History Family Medical History: She denies any family history of premature coronary artery disease. Allergies and Home Medications Allergies Coded Allergies: No Known Drug Allergies (Unverified , 08/24/18) Home Medications Amlodipine Besylate 5 Mg Tablet, 5 MG PO HS, (Reported) Last Action: Held Cholecalciferol (Vitamin D3) 400 Unit Tablet, 400 UNIT PO DAILY, (Reported) Last Action: Held Diclofenac Sodium 50 Mg Tablet.dr, 50 MG PO BID, (Reported) Last Action: Held Irbesartan/Hydrochlorothiazide 1 Each Tablet, 1 EACH PO DAILY, (Reported) Last Action: Held Magnesium 250 Mg Tablet, 250 MG PO DAILY, (Reported) Last Action: Held Misoprostol 100 Mcg Tablet, 100 MCG PO BID, (Reported) Last Action: Held Pantoprazole Sodium 40 Mg Tablet.dr, 40 MG PO DAILY, (Reported) Last Action: Reviewed Potassium 99 Mg Tablet, 99 MG PO DAILY, (Reported) Last Action: Held Patient Home Medication List Home Medication List Reviewed: Yes Physical Exam-Cardiology Physical Exam Vital Signs/I&O 12/30/20 12/30/20 12/30/20 12/30/20 01:51 02:27 03:33 04:00 Temp 37.0 Pulse 70 Resp 12 B/P (MAP) 141/65 (90) Pulse Ox 92 94 O2 Delivery Room Air Nasal Cannula Nasal Cannula O2 Flow Rate 2.00 2.00 12/30/20 12/30/20 12/30/20 12/30/20 05:51 07:00 08:50 11:48 Temp 36.0 Pulse 73 72 77 Resp 18 18 B/P (MAP) 138/68 (91) 137/76 (96) Pulse Ox 92 98 95 O2 Delivery Nasal Cannula Room Air Room Air O2 Flow Rate 3.00 12/30/20 13:00 Pulse 119 12/30/20 00:00 Intake Total 1400 ml Balance 1400 ml Capillary Refill : Less Than 3 Seconds Constitutional: appears stated age, AAO x 3, well-nourished, other (She is overweight.) HEENT: other (She is normocephalic and atraumatic. Extraocular movements are intact. There are no xanthelasma. Sclerae are clear.) Neck: non-tender, full range of motion, supple, normal inspection, carotid pulses are 2 + bilaterally, with good upstrokes Respiratory: other (Decreased breath sounds at the right base, otherwise clear to auscultation.) Cardiovascular: irregularly irregular, other (No murmurs, rubs or gallops appreciated.) Gastrointestinal: other (The abdomen is soft, nontender and nondistended.) Rectal: deferred Extremities: normal range of motion, non-tender, normal inspection, no lower extremity edema bilateral Neurologic/Psychiatric: normal mood/affect, other (Cranial nerves II through XII are grossly intact. The patient has good motor tone and strength in the upper and lower extremities bilaterally. The patient is alert and oriented x3.) Skin: normal color, warm/dry Data Review Labs Laboratory Tests 12/29/20 14:40: Lactic Acid Level 1.55 12/30/20 03:35: White Blood Count 8.6, Red Blood Count 4.15, Hemoglobin 11.8, Hematocrit 37, Mean Corpuscular Volume 90, Mean Corpuscular Hemoglobin 28, Mean Corpuscular Hemoglobin Concent 32, Red Cell Distribution Width 13.1, Platelet Count 204, Mean Platelet Volume 10.6, Immature Granulocyte % (Auto) 0, Neutrophils (%) (Auto) 67, Lymphocytes (%) (Auto) 23, Monocytes (%) (Auto) 6, Eosinophils (%) (Auto) 3, Basophils (%) (Auto) 0, Neutrophils # (Auto) 5.8, Lymphocytes # (Auto) 2.0, Monocytes # (Auto) 0.5, Eosinophils # (Auto) 0.3, Basophils # (Auto) 0.0, Immature Granulocyte # (Auto) 0.0, Sodium Level 143, Potassium Level 3.9, Chloride Level 108H, Carbon Dioxide Level 22, Anion Gap 13, Blood Urea Nitrogen 14, Creatinine 0.86, Estimat Glomerular Filtration Rate > 60, BUN/Creatinine Ratio 16, Glucose Level 100, Calcium Level 8.5, Thyroid Stimulating Hormone (TSH) 2.41, Free Thyroxine 1.08 ECG Impression ECG Comment With lowAtrial fibrillation with a rapid ventricular rate at 126 bpm in the precordial leads, possible left ventricular hypertrophy with repolarization abnormality in the lateral leads, left anterior hemiblock, possible old anterior myocardial infarction and nonspecific ST-T wave changes. EKG : EKG Time: 13:12 A/P-Cardiology Assessment/Admission Diagnosis Paroxysmal atrial fibrillation. This is a new finding in this patient. At first, I thought this may have been brought on by her possible pneumonia. However, the atrial fibrillation recurred this afternoon. As such, it is conceivable that she may be having paroxysmal atrial fibrillation at home. She was started on apixaban by the emergency room physician. The hospitalist has started her on long-acting diltiazem. In light of the present tachycardia, I will give her a dose of short acting diltiazem. We will continue to monitor her on telemetry overnight. If her heart rate is remain elevated, we may need to increase the dose of the long-acting diltiazem. I will obtain an echocardiogram in the morning. If she is still here on Friday, I will plan on a nuclear stress test at that time. Essential hypertension. Blood pressures were somewhat low on admission. The hospitalist has adjust the medication accordingly. Abnormal ECG. She does have an abnormal ECG as outlined above showing left anterior hemiblock and possible old anterior infarct. In light of the atrial fibrillation, she will ultimately need a stress test at some point in time. Acute respiratory failure with hypoxemia. Probably related to her acute pulmon ankush disease. We will plan on an echocardiogram tomorrow as outlined above. Thank you for the courtesy of this consultation. We will be happy to follow along. ALLA MALIK JR, MD Dec 30, 2020 13:41
[2020-12-30] MEDS: LACTOBACILLUS ACIDOPHILUS (PROBIOTIC) CAPSULE PO SCH ×2 (13:44→18:26)
[2020-12-30] MEDS ORDERED: dilTIAZem120 MG (CARDIZEM CD) CAP PO ONE ×2 (18:15→18:23)
[2020-12-31] VITALS (7 sets, daily range): BP systolic 118–151; BP diastolic 72–89
[2020-12-31] MEDS: LACTATED RINGERS 1,000 ML IV SCH (00:08)
[2020-12-31 04:17] LABS: HEMATOCRIT 40 % (35-52); HEMOGLOBIN 13.1 g/dL (11.5-16.0); MEAN CORPUSCULAR HEMOGLOBIN 29 pg (25-34); MEAN CORPUSCULAR HGB CONC 33 g/dL (32-36); MEAN CORPUSCULAR VOLUME 88 fL (80-99); MEAN PLATELET VOLUME 10.1 fL (9.0-12.2); PLATELET COUNT 221 10^3/uL (130-400)
[2020-12-31 04:25] LABS: CHLORIDE 107 MMOL/L (98-107); POTASSIUM 3.7 MMOL/L (3.6-5.0); SODIUM 141 MMOL/L (135-145)
[2020-12-31 04:26] LABS: CALCIUM 9.4 MG/DL (8.5-10.1)
[2020-12-31 04:27] LABS: GLUCOSE 118 MG/DL (70-105)
[2020-12-31 04:28] LABS: CARBON DIOXIDE 23 MMOL/L (21-32)
[2020-12-31 04:31] LABS: BUN/CREATININE RATIO 15; CREATININE SERUM 0.87 MG/DL (0.60-1.30); GFR ESTIMATED > 60
--- NOTE | 2020-12-31 08:52 | Progress Note ---
Subjective Subjective Date Seen by Provider: Dec 31, 2020 Time Seen by Provider: 08:55 PT REPORTS THAT SHE IS FEELING A LITTLE BIT BETTER TODAY. PT DENIES CHEST PAIN, SHORTNESS OF BREATH, ABDOMINAL PAIN, NAUSEA, DIZZINESS. Review of Systems General: No Chills, No Fatigue, No Malaise HEENT: No Visual Changes, No Dysphasia Pulmonary: Dyspnea; No Cough Cardiovascular: No: Chest Pain Gastrointestinal: No: Nausea, Abdominal Pain Musculoskeletal: hand pain (RIGHT GREATER THAN LEFT) Neurological: Weakness; No: Confusion All Other Systems Reviewed All Other Systems Reviewed: Yes Objective Exam Vital Signs Vital Signs - First Documented 12/29/20 12/29/20 12/29/20 10:10 10:11 19:14 Temp 35.7 Pulse 138 Resp 20 B/P (MAP) 101/79 (86) Pulse Ox 89 O2 Delivery Room Air O2 Flow Rate 2.00 FiO2 21 Capillary Refill : Less Than 3 Seconds General Appearance: WD/WN, Other (APPEARS ILL, BUT NOT IN DISTRESS) Eyes: Bilateral Eye Normal Inspection, Bilateral Eye PERRL, Bilateral Eye EOMI HEENT: PERRL/EOMI, Pharynx Normal, Other (PARTIAL CERUMEN OBSTRUCTION BILATERALLY) Neck: Full Range of Motion, Normal Inspection, Non Tender, Supple Respiratory: Chest Non Tender, Crackles (BASES BILATERALLY) Cardiovascular: Regular Rate, Rhythm, No Edema, No JVD, Normal Peripheral Pulses Gastrointestinal: Normal Bowel Sounds, No Organomegaly, No Pulsatile Mass, Soft, Tenderness (SLIGHTLY TTP OVER EPIGASTRIUM, FULL BLADDER) Rectal: Deferred Back: Normal Inspection, No CVA Tenderness, No Vertebral Tenderness Extremity: Normal Capillary Refill, Normal Inspection, Normal Range of Motion, Non Tender, No Calf Tenderness, No Pedal Edema Neurologic/Psychiatric: Alert, Oriented x3, No Motor/Sensory Deficits, Normal 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, 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 Norm as 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4 Microbiology 12/29/20 Blood Culture - Preliminary, Resulted Gram Positive Cocci Assessment/Plan Assessment/Plan Admission Dx SEPSIS PNEUMONIA NEW ONSET ATRIAL FIBRILLATION DYSPNEA HYPOKALEMIA HYPERTENSION GERD HYPOTHYROIDISM DIABETES MELLITUS - DIET CONTROLLED Assessment and Plan SEPSIS PNEUMONIA NEW ONSET ATRIAL FIBRILLATION DYSPNEA HYPOKALEMIA HYPERTENSION GERD HYPOTHYROIDISM DIABETES MELLITUS - DIET CONTROLLED SEPSIS DUE TO PNEUMONIA - IMAGING FOLLOWS: CT ANGIO CHEST - INDICATION: Dizziness, diaphoresis, abnormal lung sounds, wheezing, high probability PE The pulmonary arteries or diagnostic to the proximal segmental level. There is motion artifact, particularly in the lung bases, which results in suboptimal evaluation. No filling defect is seen to indicate a pulmonary embolus. There is no evidence of right heart strain. The heart is mildly large. There is no pericardial effusion. No significant mediastinal adenopathy is seen. There is no axillary adenopathy. The aorta demonstrates mild atherosclerosis. There is focal groundglass and airspace opacity in the lower lobes, left greater than right. No pneumothorax is seen. There is no pleural effusion. No central endobronchial lesion is seen. No acute osseous abnormality is seen. There are degenerative changes in the spine. Imaged portions of the upper abdomen demonstrate no acute abnormality. IMPRESSION: 1. No pulmonary embolus is seen. 2. Groundglass and airspace opacities in the lower lobes may represent infection and/or atelectasis. - PT STARTED ON SEPSIS PROTOCOL, PNEUMONIA PROTOCOL, MONITOR CXR SERIALLY, MONITOR LABS, CHEST 1 VIEW, AP/PA ONLY - WILL DECREASE DOSE OF IV FLUIDS FROM 150ML/HR TO 75ML/HR Chest 1 view - COMPARISON: Chest radiograph on 12/29/2020. FINDINGS: The lung volumes are normal. Stable opacities are seen in the left l dennise base with improved aeration in the right lung base. No large pleural effusion or pneumothorax is seen. The cardiomediastinal silhouette is normal in size and contour. No acute osseous abnormality is seen. IMPRESSION: 1. Improved aeration in the right lung base with stable opacities in the left lung base, which may represent infection and/or atelectasis.. - OXYGEN VIA NC, TAPER ABLE. NEW ONSET ATRIAL FIBRILLATION - CONSULT TO CARDIOLOGY - ELIQUIS INITIATED IN HOSPITAL - CARDIZEM CONVERTED PT TO NORMAL RATE - WILL CONTINUE WITH ORAL CARDIZEM - DOSE INCREASED FROM 120MG TO 240MG. HYPOKALEMIA - IV SUPPLEMENTATION HYPERTENSION - CHRONIC - CHECK MEDS, WILL HOLD HOME MEDS UNTIL WE GET RATE CONTROLLED AND CONSIDER ADJUSTMENT OF HOME REGIMEN BASED ON TREATMENT FOR AFIB. - INCREASE CARDIZEM FROM 120MG TO 240MG. GERD - PROTONIX BID HYPOTHYROIDISM - MEDS RECENTLY STOPPED - CHECKED TSH, FREE T4 - BOTH WITHIN NORMAL LIMITS DIABETES MELLITUS - DIET CONTROLLED - DIABETIC DIET GI PROPHYLAXIS WITH PROTONIX, AND PROBIOTICS DVT PROPHYLAXIS WITH ELIQUIS AND SCD'S ANTICIPATE AT LEAST 48 - 72 HOURS IN HOSPITAL FOR TREATMENT OF PNEUMONIA, AND NEW ONSET AFIB Admission Dx SEPSIS PNEUMONIA NEW ONSET ATRIAL FIBRILLATION DYSPNEA HYPOKALEMIA HYPERTENSION GERD HYPOTHYROIDISM DIABETES MELLITUS - DIET CONTROLLED Clinical Quality Measures Admission Status Admission Dx SEPSIS PNEUMONIA NEW ONSET ATRIAL FIBRILLATION DYSPNEA HYPOKALEMIA HYPERTENSION GERD HYPOTHYROIDISM DIABETES MELLITUS - DIET CONTROLLED TANIKA MARIE MD Dec 31, 2020 08:52
[2020-12-31] MEDS: LACTOBACILLUS ACIDOPHILUS (PROBIOTIC) CAPSULE PO SCH ×3 (09:05→17:14)
[2020-12-31] MEDS: APIXABAN 5 MG (ELIQUIS) TABLET PO SCH ×2 (09:05→20:07)
[2020-12-31] MEDS: PANTOPRAZOLE 40 MG (PROTONIX) TAB PO SCH ×2 (09:05→20:07)
[2020-12-31] MEDS: dilTIAZem120 MG (CARDIZEM CD) CAP PO SCH (09:05)
[2020-12-31] MEDS: cefTRIAXone 1,000 MG/SWFI 10 ML IV PUSH IV SCH ×2 (09:06)
[2020-12-31] MEDS: DICLOFENAC 1% GEL 100 GM (VOLTAREN) TUBE TOP SCH ×4 (09:06→20:07)
[2020-12-31] MEDS: AZITHROMYCIN 500 MG/NS 250 ML IVPB IV SCH ×2 (09:06)
--- NOTE | 2020-12-31 10:18 | Diagnostic Imaging Report ---
EXAMINATION: Chest 2 view HISTORY: Pneumonia COMPARISON: Chest radiograph 12/30/2020 FINDINGS: Heart size and pulmonary vasculature are stable. Continued mild streaky opacities in the left lung base. The right lung is clear. No pleural effusion or pneumothorax. The osseous structures are intact. IMPRESSION: 1. Stable left basilar opacities compared to 12/30/2020. Dictated by: Dictated on workstation # [id number]
[2020-12-31] MEDS ORDERED: REGADENOSON 0.4 MG/5 ML SYR (LEXISCAN) IV ONE (10:30)
--- NOTE | 2020-12-31 10:31 | Cardiology Progress Note ---
Subjective Date Seen by Provider: Dec 31, 2020 Time Seen by Provider: 10:26 Subjective/Events-last exam We are seeing her for atrial fibrillation. She denies palpitations. These seem to have resolved overnight. She denies chest discomfort, dyspnea, syncope, or lower extremity edema. Focused Exam Lactate Level 12/29/20 14:40: Lactic Acid Level 1.55 Time of Focused Exam: 14:34 Objective-Cardiology Exam Last Set of Vital Signs Vital Signs 12/29/20 12/30/20 12/31/20 12/31/20 19:14 05:51 04:50 08:55 Temp 36.8 Pulse 141 Resp 18 B/P (MAP) 133/85 (101) Pulse Ox 95 O2 Delivery Room Air O2 Flow Rate 3.00 FiO2 21 Capillary Refill : Less Than 3 Seconds I&O Intake and Output 12/31/20 00:00 Intake Total 1200 ml Output Total 1150 ml Balance 50 ml Intake Oral 1200 ml Output Urine Total 1150 ml # Voids 4 # Bowel Movements 1 General: Alert, Oriented X3, Cooperative, No Acute Distress HEENT: Atraumatic, EOMI Neck: Supple, No JVD Lungs: Clear to Auscultation, Normal Air Movement Heart: Normal S1, Normal S2, No Murmurs, Other (Tachycardia with irregularly irregular rate and rhythm.) Abdomen: Normal Bowel Sounds, Soft, No Tenderness Extremities: No Clubbing, No Edema Skin: No Rashes Neuro: Normal Speech, Strength at 5/5 X4 Ext, Cranial Nerves 3-12 NL Psych/Mental Status: Mental Status NL, Mood NL Results Lab Laboratory Tests 12/31/20 04:08 A/P-Cardiology Admission Diagnosis Atrial fibrillation, paroxysmal. She remains in atrial fibrillation. Yesterday she needed extra doses of diltiazem to help control her heart rate. I have increased the Cardizem CD to 240 mg once daily. She is on Eliquis for stroke prophylaxis. I will plan on a nuclear stress test in the morning to assess for any coronary ischemia that could have incited the atrial fibrillation. However, I suspect she may have been having paroxysmal atrial fibrillation prior to admission. Once she has been on oral anticoagulation for 30 days, I will plan on an outpatient elective cardioversion. Essential hypertension. The primary hospitalist has stopped her irbesartan and amlodipine and replace this with diltiazem CD. We will titrate this to her blood pressure and heart rates. If her blood pressure remains elevated, we may need to restart a low-dose of irbesartan. Acute respiratory failure with hypoxia. Most likely related to the pneumonia and possibly some component secondary to the rapid ventricular rate. However, there has been no evidence of pulmonary congestion on her chest x-ray and her echocardiogram did not reveal any structural heart disease to explain a cardiac cause of respiratory failure. The primary physician is managing the pneumonia. Abnormal ECG. She has borderline abnormal ECG. However, there is no evidence of ischemia despite the tachycardia. We will proceed with a stress test tomorrow as above. ALLA MALIK JR, MD Dec 31, 2020 10:31
[2020-12-31] MEDS: ACETAMINOPHEN 325 MG TABLET PO PRN (12:03)
[2021-01-01] VITALS (8 sets, daily range): BP systolic 111–144; BP diastolic 65–103
[2021-01-01] MEDS: dilTIAZem120 MG (CARDIZEM CD) CAP PO SCH (06:31)
[2021-01-01] MEDS: LACTOBACILLUS ACIDOPHILUS (PROBIOTIC) CAPSULE PO SCH ×3 (07:50→17:00)
[2021-01-01] MEDS: PANTOPRAZOLE 40 MG (PROTONIX) TAB PO SCH ×2 (07:51→20:13)
[2021-01-01] MEDS: APIXABAN 5 MG (ELIQUIS) TABLET PO SCH ×2 (07:51→20:13)
[2021-01-01] MEDS: AMIODARONE 200 MG (CORDARONE) TAB PO SCH ×2 (07:51→20:13)
[2021-01-01] MEDS: AZITHROMYCIN 500 MG/NS 250 ML IVPB IV SCH ×2 (07:51)
[2021-01-01] MEDS: DICLOFENAC 1% GEL 100 GM (VOLTAREN) TUBE TOP SCH ×4 (07:53→20:14)
--- NOTE | 2021-01-01 08:35 | Cardiology Progress Note ---
Subjective Date Seen by Provider: Jan 01, 2021 Time Seen by Provider: 08:34 Subjective/Events-last exam We are seeing her for atrial fibrillation. Early this morning she went back into atrial fibrillation. She denies any palpitations. Her breathing has improved. She denies chest discomfort, syncope, or lower extremity edema. She is scheduled for a Lexiscan nuclear stress test at 12:00 today. Focused Exam Lactate Level 12/29/20 14:40: Lactic Acid Level 1.55 Time of Focused Exam: 14:34 Objective-Cardiology Exam Last Set of Vital Signs Vital Signs 12/29/20 01/01/21 01/01/21 19:14 07:43 08:14 Temp 36.6 Pulse 101 Resp 20 B/P (MAP) 144/103 (117) Pulse Ox 97 O2 Delivery Room Air O2 Flow Rate 2.00 FiO2 21 I&O Intake and Output 01/01/21 00:00 Intake Total 2610 ml Output Total 1850 ml Balance 760 ml Intake Oral 1350 ml IV Total 1260 ml Output Urine Total 1850 ml # Voids 3 General: Alert, Oriented X3, Cooperative, No Acute Distress HEENT: Atraumatic, EOMI Neck: Supple, No JVD Lungs: Clear to Auscultation, Normal Air Movement Heart: Normal S1, Normal S2, No Murmurs, Other (Tachycardia with irregularly irregular rate and rhythm.) Abdomen: Normal Bowel Sounds, Soft, No Tenderness Extremities: No Clubbing, No Edema Skin: No Rashes Neuro: Normal Speech, Strength at 5/5 X4 Ext, Cranial Nerves 3-12 NL Psych/Mental Status: Mental Status NL, Mood NL Procedures Procedures Electrocardiogram: Atrial fibrillation with a rapid ventricular rate of 110 bpm with poor R wave progression and nonspecific T wave changes. A/P-Cardiology Admission Diagnosis Atrial fibrillation, paroxysmal. She remains in atrial fibrillation. Yesterday she converted back to sinus rhythm but now this morning she is back in atrial fibrillation. She is on Eliquis for stroke prophylaxis. She will have a nuclear stress test later today's to assess for any possible coronary ischemia that may have incited the atrial fibrillation. I will start her on amiodarone loading. I will plan to taper this after discharge. Ultimately, I will plan to discontinue the amiodarone and after an appropriate washout, I will obtain a follow-up event recorder to screen for any ongoing atrial fibrillation once the amiodarone is discontinued. Essential hypertension. Blood pressures are intermittently elevated. Her outpatient medications were discontinued so that we could give her diltiazem. If her blood pressures remain elevated, we may need to restart a low dose of irbesartan. Acute respiratory failure with hypoxia. Most likely related to the pneumonia and possibly some component secondary to the rapid ventricular rate. However, there has been no evidence of pulmonary congestion on her chest x-ray and her echocardiogram did not reveal any structural heart disease to explain a cardiac cause of respiratory failure. The primary physician is managing the pneumonia. I suspect the pneumonia may have caused the atrial fibrillation Abnormal ECG. She has borderline abnormal ECG. However, there is no evidence of ischemia despite the tachycardia. We will proceed with a stress test tomorrow as above. ALLA MALIK JR, MD Jan 01, 2021 08:35
[2021-01-01] MEDS: cefTRIAXone 1,000 MG/SWFI 10 ML IV PUSH IV SCH ×2 (09:55)
[2021-01-01] MEDS ORDERED: POTA99TA18 PO (10:20)
[2021-01-01] MEDS ORDERED: CHOL-34 PO (10:20)
[2021-01-01] MEDS ORDERED: LORA10TA7 PO (10:20)
[2021-01-01] MEDS ORDERED: MTP25TSR PO (10:20)
[2021-01-01] MEDS ORDERED: ACET-2267 PO (10:20)
[2021-01-01] MEDS ORDERED: CAND1TAB16 PO (10:20)
--- NOTE | 2021-01-01 15:17 | Cardiology Stress Test Report ---
Stress Test Report Date of Procedure/Referring: Date of Procedure: Jan 01, 2021 PCP Mague Sanchez MD Admitting Physician Sushila Chandler DO Indications: Paroxysmal atrial fibrillation. Baseline Heart Rate: 77 Baseline Blood Pressure: Blood Pressure Systolic: 126 Blood Pressure Diastolic: 70 Baseline Vitals Vital Signs Date Time Temp Pulse Resp B/P (MAP) Pulse Ox O2 Delivery O2 Flow Rate FiO2 12/29/20 10:10 35.7 138 20 101/79 (86) 89 Room Air 12/29/20 10:11 2.00 12/29/20 19:14 21 Baseline EKG: Baseline EKG: Sinus rhythm with borderline left axis deviation, poor R wave progression, Summary After explaining the procedure to the patient, she signed a consent and then brought to the stress nuclear laboratory. This was a walking Lexiscan. After walking for 1 minute of the modified Buzz protocol, the patient received 0.4 mg Lexiscan for stress test. ECG, heart rate and blood pressure were monitored continuously. Resting and stress dose of radio tracer were injected, imaging was acquired and reviewed in short axis, horizontal long axis and vertical long axis views. The rest dose of nuclear isotope was 10.4 mCi of Myoview and the stress dose of nuclear isotope was 32.3 mCi of Myoview. Gated imaging was obtained. There was a mild degree of gastrointestinal and breast attenuation artifact noted. PERFUSION: 1. There was normal myocardial perfusion in all segments without evidence of infarction or ischemia. 2. There was normal left ventricular chamber size with an end-diastolic volume of 60 mL and an end-systolic volume of 18 mL. There was no evidence of transient ischemic dilatation. WALL MOTION: 1. There was normal wall motion in all segments with a calculated ejection fraction of 70%. IMPRESSION: 1. Normal heart rate and blood pressure response to Lexiscan. 2. There was no chest discomfort during the Lexiscan infusion. 3. There were no arrhythmias during the Lexiscan infusion. 4. There were no electrocardiogram changes during the Lexiscan infusion. 5. There was normal myocardial perfusion in all segments without evidence of infarction or ischemia. 6. The calculated ejection fraction was 70%. ALLA MALIK JR, MD Jan 01, 2021 15:17
--- NOTE | 2021-01-01 18:47 | Progress Note ---
Subjective Date Seen by a Provider: Jan 01, 2021 Time Seen by a Provider: 18:44 Subjective/Events-last exam Fwup pneumonia with sepsis, new on set atrial fibrillation, HTN. Sitting up in bed. Lexiscan stress test this afternoon was negative for ischemia. Minimal cough. Focused Exam Time of Focused Exam: 14:34 Objective Exam Vital Signs Date Time Temp Pulse Resp B/P (MAP) Pulse Ox O2 Delivery O2 Flow Rate FiO2 01/01/21 15:30 36.5 74 18 111/68 (82) 93 Room Air 01/01/21 13:04 36.4 69 20 126/70 (88) 95 Room Air 01/01/21 11:51 73 127/76 (93) 94 01/01/21 10:00 116/75 (89) 01/01/21 08:41 90 Room Air 01/01/21 08:14 Room Air 01/01/21 07:43 36.6 101 20 144/103 (117) 97 Nasal Cannula 2.00 01/01/21 06:32 110 01/01/21 03:30 36.9 73 18 133/65 (87) 96 Nasal Cannula 2.00 01/01/21 01:00 63 12/31/20 23:00 36.6 69 17 150/77 (101) 95 Nasal Cannula 2.00 12/31/20 21:01 Room Air 12/31/20 19:20 98 Room Air 12/31/20 19:19 36.4 71 18 118/72 (87) 98 Room Air 12/31/20 19:05 73 I & O 01/01/21 07:00 Intake Total 1560 ml Output Total 550 ml Balance 1010 ml Capillary Refill : Less Than 3 Seconds General Appearance: No Apparent Distress Respiratory: Crackles (right base), Decreased Breath Sounds Cardiovascular: Regular Rate, Rhythm, Systolic Murmur Gastrointestinal: normal bowel sounds, non tender, soft Extremity: Non Tender, No Calf Tenderness, No Pedal Edema Neurologic/Psychiatric: Alert, Oriented x3 Skin: Warm/Dry Results Lab Microbiology 12/29/20 Gram Stain - Final, Complete 12/29/20 Sputum Culture - Final, Complete Usual upper respiratory chacorta 12/29/20 Blood Culture - Preliminary, Resulted No growth Assessment/Plan Assessment/Plan Assess & Plan/Chief Complaint 1. Pneumonia with Sepsis--on zithromax/rocephin 2. New Onset Atrial Fibrillation--has converted back to NSR--on Amiodarone, Eliquis and Diltiazem 3. Hypertension--stable ARIADNA MENG DO Jan 01, 2021 18:47
[2021-01-02 04:04] VITALS: BP 118/69
[2021-01-02 07:35] VITALS: BP 132/83
[2021-01-02] MEDS: LACTOBACILLUS ACIDOPHILUS (PROBIOTIC) CAPSULE PO SCH (08:27)
[2021-01-02] MEDS: PANTOPRAZOLE 40 MG (PROTONIX) TAB PO SCH (08:28)
[2021-01-02] MEDS: dilTIAZem120 MG (CARDIZEM CD) CAP PO SCH (08:28)
[2021-01-02] MEDS: AMIODARONE 200 MG (CORDARONE) TAB PO SCH (08:28)
[2021-01-02] MEDS: APIXABAN 5 MG (ELIQUIS) TABLET PO SCH (08:28)
[2021-01-02] MEDS: DICLOFENAC 1% GEL 100 GM (VOLTAREN) TUBE TOP SCH (08:29)
[2021-01-02] MEDS: cefTRIAXone 1,000 MG/SWFI 10 ML IV PUSH IV SCH ×2 (08:29)
[2021-01-02] MEDS ORDERED: AZITHROMYCIN 250 MG TAB (ZITHROMAX) PO SCH (09:00)
--- NOTE | 2021-01-02 09:00 | Cardiology Progress Note ---
Subjective Date Seen by Provider: Jan 02, 2021 Time Seen by Provider: 08:56 Subjective/Events-last exam We are seeing her for atrial fibrillation. When I first looked at the midwife this morning, she was in sinus rhythm. I ordered an ECG and by the time they came to do the ECG, she was back in atrial fibrillation. She denies any palpitations or feeling any different within the last half hour when she converted back to atrial fibrillation. She denies chest discomfort, dyspnea, syncope, or ankle edema. She would like to go home today if possible. Focused Exam Time of Focused Exam: 14:34 Objective-Cardiology Exam Last Set of Vital Signs Vital Signs 12/29/20 01/01/21 01/02/21 01/02/21 19:14 07:43 07:35 08:00 Temp 36.7 Pulse 72 Resp 18 B/P (MAP) 132/83 (99) Pulse Ox 94 O2 Delivery Room Air O2 Flow Rate 2.00 FiO2 21 Capillary Refill : Less Than 3 Seconds I&O Intake and Output 01/02/21 00:00 Intake Total 1115 ml Balance 1115 ml Intake Oral 855 ml IV Total 260 ml # Voids 5 General: Alert, Oriented X3, Cooperative, No Acute Distress HEENT: Atraumatic, EOMI Neck: Supple, No JVD Lungs: Clear to Auscultation, Normal Air Movement Heart: Normal S1, Normal S2, No Murmurs, Other (Tachycardia with irregularly irregular rate and rhythm.) Abdomen: Normal Bowel Sounds, Soft, No Tenderness Extremities: No Clubbing, No Edema Skin: No Rashes Neuro: Normal Speech, Strength at 5/5 X4 Ext, Cranial Nerves 3-12 NL Psych/Mental Status: Mental Status NL, Mood NL A/P-Cardiology Admission Diagnosis Atrial fibrillation, paroxysmal. She remains in atrial fibrillation. She had been in sinus rhythm for most of the night but this morning converted back to atrial fibrillation. I would load her with amiodarone. She should be discharged home on amiodarone 400 mg twice a day for 1 week then 200 mg twice a day for 2 weeks then 200 mg once a day indefinitely. I will change her Eliquis over to Xarelto for improved cost savings for the patient. She should continue on diltiazem for rate control. I suspect the atrial fibrillation may have been brought on by her acute pulmonary condition. Hopefully, we can wean the amio darone to off in the next couple of months. Essential hypertension. Since increasing the dose of diltiazem, her blood pressures have improved. I recommend she be discharged with diltiazem and for the time being, hold her previous outpatient antihypertensive medications. Acute respiratory failure with hypoxia. Most likely related to the pneumonia and possibly some component secondary to the rapid ventricular rate. I suspect the pneumonia may have caused the atrial fibrillation Abnormal ECG. She has borderline abnormal ECG. However, she underwent a stress test on 01/01 and this showed normal myocardial perfusion with a normal ejection fraction. No additional cardiac testing is indicated for this abnormality at this point in time. ALLA MALIK JR, MD Jan 02, 2021 09:00
[2021-01-02] MEDS ORDERED: RIVA20TA2 PO ×2 (12:34→12:39)
[2021-01-02] MEDS ORDERED: DILT240C91 PO (12:44)
[2021-01-02] MEDS ORDERED: AMIO200T6 PO (12:44)
[2021-01-02] MEDS ORDERED: RIVAROXABAN 20 MG TABLET (XARELTO) PO SCH (17:00)
[2021-01-02] MEDS ORDERED: AMIODARONE 200 MG (CORDARONE) TAB PO SCH (21:00)
== END 2021-01-02 13:00 | disposition home or self-care (01) | DRG 871 ==
LOC: EDUNIT# 10:10 → ER 10:13 → 4TH 14:40 → UNDOADMIN 14:40 → CSD 14:40
PROVIDERS: ADMIT Family Medicine; ATTEND Family Medicine
DX: A41.9 Sepsis, unspecified organism (principal); J18.9 Pneumonia, unspecified organism; J96.01 Acute respiratory failure with hypoxia; I48.0 Paroxysmal atrial fibrillation; I10 Essential (primary) hypertension; E11.9 Type 2 diabetes mellitus without complications; E87.6 Hypokalemia; M19.91 Primary osteoarthritis, unspecified site; Z20.822 Contact with and (suspected) exposure to COVID-19; E03.9 Hypothyroidism, unspecified; K21.9 Gastro-esophageal reflux disease without esophagitis; Z82.49 Family history of ischemic heart disease and other diseases of the circulatory system; Z96.653 Presence of artificial knee joint, bilateral
CPT/HCPCS: 36415; 71045; 71046; 71275; 78452; 80048; 80053; 82805; 83036; 83605; 83735; 83874; 84439; 84443; 84484; 85025; 85027; 85610; 85730; 86738; 87040; 87070; 87077; 87205; 87636; 93005; 93017; 93041; 93306; 94760

== ENCOUNTER → 2021-04-02 | Outpatient (CLI) | payer MEDICARE, OTHER ==
[~2021-04-02] MED LIST changes: +ACET-2267 PO; +AMIO200T6 PO; +CAND1TAB16 PO; +CHOL-34 PO; +DILT240C91 PO; +LORA10TA7 PO; +MTP25TSR PO; +POTA99TA18 PO; +RIVA20TA2 PO
--- NOTE | 2021-04-02 15:56 | Diagnostic Imaging Report ---
INDICATION: Cough, SOB, Covid negative. COMPARISON: 12/31/2020. FINDINGS: Frontal and lateral views of the chest demonstrate normal heart size and pulmonary vascularity. The lungs are clear. There are no signs of infiltrate, pleural effusions, or pneumothoraces. The visualized osseous structures show no acute abnormalities. IMPRESSION: No acute process. No signs of infiltrates, effusions, or pneumothoraces. Dictated by: Dictated on workstation # [id number]
== END ==
LOC: RAD 15:11
PROVIDERS: ATTEND Family Medicine
DX: R05 Cough (principal); R06.02 Shortness of breath
CPT/HCPCS: 71046

== ENCOUNTER 2021-04-23 12:59 | Outpatient (RCR) | payer MEDICARE, OTHER ==
[~2021-04-23 12:59] MED LIST changes: -AMIO200T6 PO; +AMIO200T65 PO
--- NOTE | 2021-05-25 08:26 | 30 Day Event Recorder ---
30-DAY EVENT RECORDER 30-DAY EVENT RECORDER DATE OF PROCEDURE: 04/23/2021-05/22/2021. INDICATION: Paroxysmal atrial fibrillation. PROCEDURE: A 30-day event recorder was obtained for a total of 22 days and 12 hours. 29 rhythm strips were presented for review. The study quality is adequate. RESULTS: 1. Baseline sinus rhythm with an average heart rate of 68 bpm, ranging from 48- 121 bpm with rare, isolated premature supraventricular and premature ventricular complexes each representing less than 1% of the total recording time. 2. There were no pauses exceeding 2 seconds in duration. 3. There was no definitive evidence of atrial fibrillation. 4. No symptoms appear to have been reported during the test. IMPRESSION: 1. This is a 30-day event recorder that was obtained for total of 22 days and 12 hours. 2. Baseline sinus rhythm with an average heart rate of 68 bpm, ranging from 48- 121 bpm with rare, isolated premature supraventricular and premature ventricular complexes each representing less than 1% of the total recording time. 3. There was no definitive evidence of atrial fibrillation. 4. No symptoms appear to have been reported during the test. Certain portions of this document may have been dictated utilizing voice recognition technology. Inherent to this technology, typographical and grammatical errors may exist. As much as I am diligent to identify and correct these mistakes, some errors may remain in the document. ALLA MALIK JR, MD May 25, 2021 08:26
== END 2021-07-20 | disposition home or self-care (01) ==
LOC: CARD 12:59
PROVIDERS: ATTEND Internal Medicine Cardiovascular Disease
DX: I48.0 Paroxysmal atrial fibrillation (principal)

== ENCOUNTER → 2021-05-02 | Outpatient (CLI) | payer MEDICARE, OTHER ==
[~2021-05-02] MED LIST changes: +AMIO200T6 PO; -AMIO200T65 PO
--- NOTE | 2021-05-02 14:07 | Diagnostic Imaging Report ---
PROCEDURE: US Thyroid. TECHNIQUE: Multiple real-time grayscale images were obtained of the thyroid in various projections. INDICATION: R94.6 COMPARISON: 09/17/2016 FINDINGS: The right lobe of the thyroid gland measures 4.8 x 2.0 x 1.4 cm. It demonstrates a heterogeneous echotexture without discrete nodule. The left lobe of thyroid gland measures 4.4 x 1.9 x 1.5 cm. Demonstrates a heterogeneous echotexture without discrete nodule. The isthmus is heterogeneous without nodule. IMPRESSION: Heterogeneous thyroid gland without discrete nodule. Previously noted right thyroid nodule is not definitively visualized on today's examination. Dictated by: Dictated on workstation # [id number]
== END ==
LOC: RAD 12:09
PROVIDERS: ATTEND Family Medicine
DX: R94.6 Abnormal results of thyroid function studies (principal)
CPT/HCPCS: 76536

== ENCOUNTER 2021-06-08 13:17 | Outpatient (CLI) | payer MEDICARE, OTHER | END 2021-06-08 13:33 | LOC: SLEEP 13:17 | PROVIDERS: ATTEND Internal Medicine Cardiovascular Disease | DX: G47.33 Obstructive sleep apnea (adult) (pediatric) (principal); I49.9 Cardiac arrhythmia, unspecified; I10 Essential (primary) hypertension; I48.0 Paroxysmal atrial fibrillation; I27.20 Pulmonary hypertension, unspecified; E66.3 Overweight | CPT/HCPCS: G0399 ==

== ENCOUNTER → 2021-09-24 | Outpatient (CLI) | payer MEDICARE, OTHER ==
[~2021-09-24] MED LIST changes: -AMIO200T6 PO; +AMIO200T65 PO; -MAGN250T2 PO; +MAGN250T31 PO
== END ==
LOC: CARD 10:56
PROVIDERS: ATTEND Internal Medicine Cardiovascular Disease
DX: I35.8 Other nonrheumatic aortic valve disorders (principal); I27.20 Pulmonary hypertension, unspecified; I51.7 Cardiomegaly
CPT/HCPCS: 93306

== ENCOUNTER 2022-11-04 09:26 | Observation (INO) | payer MEDICARE ==
[~2022-11-04] VITALS: Ht 172.7 cm; Wt 90.1 kg
[~2022-11-04 09:26] MED LIST changes: -CAND1TAB16 PO; +CAND1TAB17 PO
--- NOTE | 2022-11-04 09:45 | ED Cardiac General ---
History of Present Illness General Chief Complaint: Cardiac/General Problems Stated Complaint: AFIB - VOMITING - ABD PAIN Source: patient History of Present Illness Date Seen by Provider: Nov 04, 2022 Time Seen by Provider: 09:45 Initial Comments Patient is a 72-year-old female who presents to the emergency room with a chief complaint of nonspecific abdominal discomfort, right lower quadrant pain for about a week, woke up at 3 AM with her heart "pounding". Patient states that she knows that she has a history of A-fib. She was able to go back to sleep afterwards but woke up again this morning with vomiting. She formerly saw Dr. Shelby, cardiology for A-fib with RVR and states that she believes she was taken off of her anticoagulant by Dr. Shelby. She is not currently on Xarelto. She denies actual chest pain. She is not short of breath. Some mild lower abdominal discomfort. Denies dysuria, urgency or frequency. No diarrhea. No sick contacts. No fevers. Timing/Duration: 4-6 hours Severity: moderate Activities at Onset: sleep Prior CP/Workup: other (History of A-fib) NTG SL SAW SUPERINTENDENT: No ASA po SAW SUPERINTENDENT: No Associated Systoms: Nausea/Vomiting, Other (Abdominal discomfort) Allergies and Home Medications Allergies Coded Allergies: No Known Drug Allergies (Unverified , 08/24/18) Patient Home Medication List Home Medication List Reviewed: Yes Cholecalciferol (Vitamin D3) (Vitamin D3) 10 Mcg (400 Unit) Capsule, 10 MCG PO DAILY, (Reported) Entered as Reported by: KELL ALLEN on 11/05/22 1000 Last Action: Reviewed Diltiazem HCl (Diltiazem 24Hr ER) 180 Mg Cap.er.24h, 180 MG PO DAILY Prescribed by: ARIADNA CHANDLER on 11/05/22 1219 Dronedarone HCl (Multaq) 400 Mg Tablet, 400 MG PO BID Prescribed by: ARIADNA CHANDLER on 11/05/22 1219 Levothyroxine Sodium (Levothyroxine Sodium) 50 Mcg Tablet, 50 MCG PO DAILY, (Reported) Entered as Reported by: KELL ALLEN on 11/05/22 1000 Last Action: Reviewed Loratadine (Loratadine) 10 Mg Tablet, 10 MG PO HS, (Reported) Entered as Reported by: KELL ALLEN on 11/05/22 1000 Last Action: Reviewed Losartan Potassium (Losartan Potassium) 100 Mg Tablet, 100 MG PO DAILY, (Reported) Entered as Reported by: KELL ALLEN on 11/05/22 1000 Last Action: Reviewed Magnesium Oxide (Magnesium) 400 Mg Magnesium Tablet, 400 MG PO DAILY, (Reported) Entered as Reported by: KELL ALLEN on 11/05/22 1000 Last Action: Reviewed Pantoprazole Sodium (Pantoprazole Sodium) 40 Mg Tablet.dr, 40 MG PO BID, (Reported) Entered as Reported by: PEDRO DAVILA on 08/17/18 0934 Last Action: Reviewed Rivaroxaban (Xarelto Tablet) 20 Mg Tablet, 20 MG PO DAILY@1700 Prescribed by: ARIADNA CHANDLER on 11/05/22 1219 Discontinued Medications Acetaminophen (Tylenol Extra Strength) 500 Mg Tablet, 500-1,000 MG PO Q8H PRN for PAIN-MILD (1-4), (Reported) Discontinued Reason: No Longer Taking Entered as Reported by: KELL ALLEN on 01/01/21 1020 Last Action: Discontinued Amiodarone HCl (Amiodarone HCl) 200 Mg Tablet, 400 MG PO BID Discontinued Reason: No Longer Taking Prescribed by: EZIO CRUZ on 01/02/21 1244 Last Action: Discontinued Cholecalciferol (Vitamin D3) (Vitamin D3) 25 Mcg Tablet, 25 MCG PO DAILY, (Reported) Discontinued Reason: No Longer Taking Entered as Reported by: KELL ALLEN on 01/01/21 1020 Last Action: Discontinued Diclofenac Sodium (Diclofenac Sodium) 1 % Gel..gram., 1 APPLIC TP TID PRN for PAIN-BREAKTHROUGH, (Reported) Entered as Reported by: KELL ALLEN on 11/05/22 1001 Last Action: Reviewed Diltiazem HCl (Diltiazem 24Hr ER) 240 Mg Cap.er.24h, 240 MG PO DAILY Discontinued Reason: No Longer Taking Prescribed by: EZIO CRUZ on 01/02/21 1244 Last Action: Discontinued Diltiazem HCl (Diltiazem 24Hr ER) 360 Mg Cap.er.24h, 360 MG PO DAILY, (Reported) Entered as Reported by: KELL ALLEN on 11/05/22 1000 Last Action: Reviewed Furosemide (Furosemide) 40 Mg Tablet, 40 MG PO Q48H, (Reported) Entered as Reported by: KELL ALLEN on 11/05/22 1000 Last Action: Reviewed Guaifenesin/Phenylephrine HCl (Mucus Relief PE Tablet) 400 Mg-10 Mg Tablet, 1 EACH PO HS, (Reported) Entered as Reported by: KELL ALLEN on 11/05/22 1000 Last Action: Reviewed Loratadine (Loratadine) 10 Mg Tablet, 10 MG PO DAILY, (Reported) Discontinued Reason: No Longer Taking Entered as Reported by: KELL ALLEN on 01/01/21 1020 Last Action: Discontinued Magnesium (Magnesium) 250 Mg Tablet, 250 MG PO DAILY, (Reported) Discontinued Reason: No Longer Taking Entered as Reported by: PEDRO DAVILA on 08/17/18 0934 Last Action: Discontinued Potassium Chloride (Potassium Chloride) 20 Meq Tablet.er, 20 MEQ PO Q48H, (Reported) Entered as Reported by: KELL ALLEN on 11/05/22 1000 Last Action: Reviewed Potassium Gluconate (Potassium Gluconate) 99 Mg Tablet.er, 99 MG PO DAILY, (Reported) Discontinued Reason: No Longer Taking Entered as Reported by: KELL ALLEN on 01/01/21 1020 Last Action: Discontinued Potassium Gluconate (Potassium) 595 Mg (99 Mg) Tablet, 99 MG PO DAILY, (Reported) Entered as Reported by: KELL ALLEN on 11/05/22 1000 Last Action: Reviewed Rivaroxaban (Xarelto Tablet) 20 Mg Tablet, 20 MG PO DAILY@1700 Discontinued Reason: No Longer Taking Prescribed by: EZIO CRUZ on 01/02/21 1239 Last Action: Discontinued Review of Systems Review of Systems Constitutional: see HPI Respiratory: No Symptoms Reported Cardiovascular: Palpitations Gastrointestinal: Abdominal Pain, Nausea, Vomiting Musculoskeletal: no symptoms reported Skin: no symptoms reported Past Tgkkblf-Nyfyce-Yhrakn Hx Seasonal Allergies Seasonal Allergies: No Past Medical History Surgeries: Yes (back sx, bilat TKR) Hysterectomy, Tonsillectomy Respiratory: No Cardiac: Yes Hypertension Neurological: No Female Reproductive Disorders: Denies 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 0.0oz. 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 Norm as Tested Skin: Normal Color, Warm/Dry Progress/Results/Core Measures Results/Orders Lab Results Laboratory Tests Test 11/04/22 09:42 Range/Units White Blood Count 12.0 H 4.3-11.0 10^3/uL Red Blood Count 4.55 3.80-5.11 10^6/uL Hemoglobin 12.9 11.5-16.0 g/dL Hematocrit 39 35-52 % Mean Corpuscular Volume 86 80-99 fL Mean Corpuscular Hemoglobin 28 25-34 pg Mean Corpuscular Hemoglobin Concent 33 32-36 g/dL Red Cell Distribution Width 13.7 10.0-14.5 % Platelet Count 303 130-400 10^3/uL Mean Platelet Volume 10.5 9.0-12.2 fL Immature Granulocyte % (Auto) 0 % Neutrophils (%) (Auto) 90 H 42-75 % Lymphocytes (%) (Auto) 4 L 12-44 % Monocytes (%) (Auto) 4 0-12 % Eosinophils (%) (Auto) 1 0-10 % Basophils (%) (Auto) 0 0-10 % Neutrophils # (Auto) 10.8 H 1.8-7.8 10^3/uL Lymphocytes # (Auto) 0.5 L 1.0-4.0 10^3/uL Monocytes # (Auto) 0.5 0.0-1.0 10^3/uL Eosinophils # (Auto) 0.1 0.0-0.3 10^3/uL Basophils # (Auto) 0.0 0.0-0.1 10^3/uL Immature Granulocyte # (Auto) 0.0 0.0-0.1 10^3/uL Neutrophils % (Manual) 88 % Lymphocytes % (Manual) 4 % Monocytes % (Manual) 7 % Eosinophils % (Manual) 1 % Basophils % (Manual) 0 % Band Neutrophils 0 % Blood Morphology Comment NORMAL Prothrombin Time 13.5 12.2-14.7 SEC INR Comment 1.0 0.8-1.4 Activated Partial Thromboplast Time 34 24-35 SEC Sodium Level 142 135-145 MMOL/L Potassium Level 4.2 3.6-5.0 MMOL/L Chloride Level 111 H 98-107 MMOL/L Carbon Dioxide Level 19 L 21-32 MMOL/L Anion Gap 12 5-14 MMOL/L Blood Urea Nitrogen 24 H 7-18 MG/DL Creatinine 1.10 0.60-1.30 MG/DL Estimat Glomerular Filtration Rate 53 BUN/Creatinine Ratio 22 Glucose Level 159 H 70-105 MG/DL Calcium Level 8.7 8.5-10.1 MG/DL Corrected Calcium 8.9 8.5-10.1 MG/DL Magnesium Level 2.0 1.6-2.4 MG/DL Total Bilirubin 0.5 0.1-1.0 MG/DL Aspartate Amino Transf (AST/SGOT) 14 5-34 U/L Alanine Aminotransferase (ALT/SGPT) 19 0-55 U/L Alkaline Phosphatase 100 40-136 U/L Myoglobin 64.2 10.0-92.0 NG/ML Troponin I < 0.028 <0.028 NG/ML Total Protein 6.9 6.4-8.2 GM/DL Albumin 3.8 3.2-4.5 GM/DL My Orders Orders - EZIO LOVELACE MD Ekg Tracing (11/04/22 09:36) Cbc With Automated Diff (11/04/22 10:09) Magnesium (11/04/22 10:09) Chest 1 View, Ap/Pa Only (11/04/22 10:09) Comprehensive Metabolic Panel (11/04/22 10:09) Myoglobin Serum (11/04/22 10:09) Protime With Inr (11/04/22 10:09) Partial Thromboplastin Time (11/04/22 10:09) O2 (11/04/22 10:09) Monitor-Rhythm Ecg Trace Only (11/04/22 10:09) Lipid Panel (11/05/22 06:00) Ed Iv/Invasive Line Start (11/04/22 10:09) Troponin I Tiffanie (11/04/22 10:09) Heparin (Bolus Per Protocol) (Heparin (B (11/04/22 10:15) Diltiazem Injection (Cardizem Injection) (11/04/22 10:15) Diltiazem Drip Pre-Mix (Cardizem Drip Pr (11/04/22 10:15) Manual Differential (11/04/22 09:42) Medications Given in ED Vital Signs/I&O 11/04/22 11/04/22 11/04/22 11/04/22 09:38 10:34 11:03 13:06 Temp 37.2 37.2 Pulse 168 122 105 100 Resp 22 17 B/P (MAP) 116/82 (93) 110/88 129/78 133/80 Pulse Ox 95 95 O2 Delivery Room Air Room Air Admisison Planning May Need Admission (Planning): 10:16 Progress Progress Note : Time: 10:16 Progress Note Patient seen and evaluated by me. Evaluation today includes physical exam, "cardiac work-up" to include CBC, Chem-12, magnesium, troponin, coags, EKG, single view chest x-ray. Pertinent physical exam findings include well- developed well-nourished 72-year-old female in no acute distress. Tachycardic in atrial fibrillation with a rate of 160. Lungs are clear. Abdomen is soft, mild tenderness in the bilateral lower quadrants. Differential diagnosis includes A-fib with rapid ventricular response, occult infection. Evaluation and interpretation of labs by me. CBC shows a total white blood cell count of 12.0. H&H are 12.9 and 39. Platelets 303. Patient does have a 90% left shift (neutrophils). Chemistry generally unremarkable sugar is 159. Troponin undetectable at less than 0.028. Magnesium 2.0. Coags within normal limits. EKG consistent with A-fib with RVR. Chest x-ray, no acute abnormalities per radiologist. Patient is treated with IV fluids in the emergency department. Concern for lack of anticoagulation with ongoing A-fib. Patient was initially started on full dose heparin. Case was discussed with Dr. Teresa titus for cardiology, recommended switching over to weight-based dose of Lovenox. Cardizem bolus and drip started. She was given 10 mg of Cardizem and started at 2.5 mg an hour. Case was also discussed with Dr. Chandler, the patient's primary care physician. Will admit to ICU on the Cardizem bolus titrating to heart rate below 110. Patient and family member at the bedside agreeable with plan of care. Initial ECG Impression Date: Nov 04, 2022 Initial ECG Impression Time: 09:45 Initial ECG Rate: 166 Initial ECG Rhythm: A Fib/Flutter Initial ECG Impression: Atrial Fibrillation w/RVR Diagnostic Imaging Diagonstic Imaging: Xray Plain Films/CT/US/NM/MRI: chest Comments [facility]. [place], [place] NAME: SOLITARIO ONEAL [facility] REC#: [id number] PT STATUS: REG ER : 1950 PHYSICIAN: EZIO LOVELACE MD ADMIT DATE: 11/04/22/ER Draft Date of Exam:11/04/22 CHEST 1 VIEW, AP/PA ONLY CLINICAL INDICATION: Patient with nausea, vomiting since this morning. Patient with right lower quadrant pain for approximately a week. EXAM: Portable chest x-ray upright view. COMPARISON: Chest x-ray dated 12/30/2020. FINDINGS: Lungs/pleura: Lungs are clear. There is no pneumothorax. There is no pleural effusion. Mediastinum: Unremarkable. Pulmonary vasculature: Unremarkable. Heart: Unremarkable. Bones/extrathoracic soft tissue: There are degenerative spurs involving the thoracic spine. IMPRESSION: There is no radiographic evidence of acute cardiopulmonary process. Dictated on workstation # [id number] Dict: 11/04/22 1024 Trans: 11/04/22 1027 FLORENCIA [id number] Interpreted by: NICK MAGANA MD Electronically signed by: Departure Communication (Admissions) Time/Spoke to Admitting Phy: 10:[address] Chandler, patient's primary care doctor; accepts for admission Impression Primary Impression: Atrial fibrillation with rapid ventricular response Disposition: ADMITTED INPATIENT Condition: Stable Admissions Decision to Admit Reason: Admit from ER (General) Decision to Admit/Date: Nov 04, 2022 Time/Decision to Admit Time: 10:30 Departure-Patient Inst. Referrals: ARIADNA CHANDLER DO (PCP/Family) Primary Care Physician Scripts Diltiazem HCl (Diltiazem 24Hr ER) 180 Mg Cap.er.24h 180 MG PO DAILY, #30 CAP Prov: ARIADNA CHANDLER DO 11/05/22 Dronedarone HCl (Multaq) 400 Mg Tablet 400 MG PO BID, #60 TAB Prov: ARIADNA CHANDLER DO 11/05/22 Rivaroxaban (XARELTO TABLET) 20 Mg Tablet 20 MG PO DAILY@1700, #30 TAB Prov: ARIADNA CHANDLER DO 11/05/22 EZIO LOVELACE MD Nov 04, 2022 09:45
[2022-11-04] MEDS ORDERED: dilTIAZem DRIP PRE-MIX 125 ML IV SCH (10:15)
[2022-11-04] MEDS ORDERED: HEParin 1000 UNIT/ML (10ML VIAL) FOR BOLUS IV ONE (10:15)
[2022-11-04 10:17] LABS: BASOPHILS % (AUTO) 0 % (0-10); EOSINOPHILS # (AUTO) 0.1 10^3/uL (0.0-0.3); EOSINOPHILS % (AUTO) 1 % (0-10); HEMATOCRIT 39 % (35-52); HEMOGLOBIN 12.9 g/dL (11.5-16.0); LYMPHOCYTES # (AUTO) 0.5 10^3/uL (1.0-4.0); LYMPHOCYTES % (AUTO) 4 % (12-44); MEAN CORPUSCULAR HEMOGLOBIN 28 pg (25-34); MEAN CORPUSCULAR HGB CONC 33 g/dL (32-36); MEAN CORPUSCULAR VOLUME 86 fL (80-99); MEAN PLATELET VOLUME 10.5 fL (9.0-12.2); MONOCYTES # (AUTO) 0.5 10^3/uL (0.0-1.0); MONOCYTES % (AUTO) 4 % (0-12); NEUTROPHILS # (AUTO) 10.8 10^3/uL (1.8-7.8); NEUTROPHILS % (AUTO) 90 % (42-75); PLATELET COUNT 303 10^3/uL (130-400)
[2022-11-04 10:21] LABS: ALBUMIN 3.8 GM/DL (3.2-4.5)
[2022-11-04 10:22] LABS: POTASSIUM 4.2 MMOL/L (3.6-5.0); PROTHROMBIN TIME PATIENT 13.5 SEC (12.2-14.7)
[2022-11-04 10:23] LABS: CALCIUM 8.7 MG/DL (8.5-10.1)
[2022-11-04 10:24] LABS: TOTAL PROTEIN 6.9 GM/DL (6.4-8.2)
[2022-11-04 10:26] LABS: BILIRUBIN,TOTAL 0.5 MG/DL (0.1-1.0)
--- NOTE | 2022-11-04 10:27 | Diagnostic Imaging Report ---
CLINICAL INDICATION: Patient with nausea, vomiting since this morning. Patient with right lower quadrant pain for approximately a week. EXAM: Portable chest x-ray upright view. COMPARISON: Chest x-ray dated 12/30/2020. FINDINGS: Lungs/pleura: Lungs are clear. There is no pneumothorax. There is no pleural effusion. Mediastinum: Unremarkable. Pulmonary vasculature: Unremarkable. Heart: Unremarkable. Bones/extrathoracic soft tissue: There are degenerative spurs involving the thoracic spine. IMPRESSION: There is no radiographic evidence of acute cardiopulmonary process. Dictated by: Dictated on workstation # [id number]
[2022-11-04 10:28] LABS: CREATININE SERUM 1.1 MG/DL (0.60-1.30)
[2022-11-04 10:46] LABS: BAND NEUTROPHILS 0 %; BASOPHILS % (MANUAL) 0 %; EOSINOPHILS % (MANUAL) 1 %; LYMPHOCYTES % (MANUAL) 4 %; MONOCYTES % (MANUAL) 7 %; NEUTROPHILS % (MANUAL) 88 %; RBC MORPH NORMAL
[2022-11-04] MEDS ORDERED: ENOXAPARIN 150 MG/ML (LOVENOX) SYR SQ SCH (12:45)
--- NOTE | 2022-11-04 12:46 | Consultation-Cardiology ---
HPI-Cardiology Cardiology Consultation Date of Consultation 11/04/22 Date of Admission Time Seen by Provider: 12:43 Indication: Atrial fibrillation HPI 72-year-old gentleman with history of atrial fibrillation in the past. Hypertension. She woke up around 3 in the morning with nausea and vomiting, vomited multiple times and she has checked her pulse and noted that she was tach ycardic. Denied any palpitation. No chest pain or shortness of breath. Patient came into the emergency room and noted to be in atrial fibrillation with rapid ventricular response. Home Medications & Allergies Allergies: Coded Allergies: No Known Drug Allergies (Unverified , 08/24/18) Home Medication List Reviewed: Yes VUV-Dirplh-Dgwkyr Hx Patient Social History Employed/Student: retired 2[employer] Smoke Exposure: Yes Recent Hopitalizations: No Have you traveled recently?: No Alcohol Use?: No Immunizations Up To Date Date of Pneumonia Vaccine: Apr 20, 2018 Date of Influenza Vaccine: Apr 20, 2018 Past Medical History Discussed below Family Medical History Significant Family History: Cancer, Hypertension Review of Systems-General Review of Systems Constitutional: no symptoms reported, see HPI EENTM: see HPI, no symptoms reported Respiratory: no symptoms reported, see HPI Cardiovascular: see HPI Gastrointestinal: no symptoms reported, see HPI Genitourinary: no symptoms reported, see HPI Musculoskeletal: no symptoms reported, see HPI Skin: no symptoms reported, see HPI Psychiatric/Neurological: No Symptoms Reported, See HPI Reviewed Test Results Reviewed Test Results Lab Laboratory Tests Test 11/04/22 09:42 Range/Units White Blood Count 12.0 H 4.3-11.0 10^3/uL Red Blood Count 4.55 3.80-5.11 10^6/uL Hemoglobin 12.9 11.5-16.0 g/dL Hematocrit 39 35-52 % Mean Corpuscular Volume 86 80-99 fL Mean Corpuscular Hemoglobin 28 25-34 pg Mean Corpuscular Hemoglobin Concent 33 32-36 g/dL Red Cell Distribution Width 13.7 10.0-14.5 % Platelet Count 303 130-400 10^3/uL Mean Platelet Volume 10.5 9.0-12.2 fL Immature Granulocyte % (Auto) 0 % Neutrophils (%) (Auto) 90 H 42-75 % Lymphocytes (%) (Auto) 4 L 12-44 % Monocytes (%) (Auto) 4 0-12 % Eosinophils (%) (Auto) 1 0-10 % Basophils (%) (Auto) 0 0-10 % Neutrophils # (Auto) 10.8 H 1.8-7.8 10^3/uL Lymphocytes # (Auto) 0.5 L 1.0-4.0 10^3/uL Monocytes # (Auto) 0.5 0.0-1.0 10^3/uL Eosinophils # (Auto) 0.1 0.0-0.3 10^3/uL Basophils # (Auto) 0.0 0.0-0.1 10^3/uL Immature Granulocyte # (Auto) 0.0 0.0-0.1 10^3/uL Neutrophils % (Manual) 88 % Lymphocytes % (Manual) 4 % Monocytes % (Manual) 7 % Eosinophils % (Manual) 1 % Basophils % (Manual) 0 % Band Neutrophils 0 % Blood Morphology Comment NORMAL Prothrombin Time 13.5 12.2-14.7 SEC INR Comment 1.0 0.8-1.4 Activated Partial Thromboplast Time 34 24-35 SEC Sodium Level 142 135-145 MMOL/L Potassium Level 4.2 3.6-5.0 MMOL/L Chloride Level 111 H 98-107 MMOL/L Carbon Dioxide Level 19 L 21-32 MMOL/L Anion Gap 12 5-14 MMOL/L Blood Urea Nitrogen 24 H 7-18 MG/DL Creatinine 1.10 0.60-1.30 MG/DL Estimat Glomerular Filtration Rate 53 BUN/Creatinine Ratio 22 Glucose Level 159 H 70-105 MG/DL Calcium Level 8.7 8.5-10.1 MG/DL Corrected Calcium 8.9 8.5-10.1 MG/DL Magnesium Level 2.0 1.6-2.4 MG/DL Total Bilirubin 0.5 0.1-1.0 MG/DL Aspartate Amino Transf (AST/SGOT) 14 5-34 U/L Alanine Aminotransferase (ALT/SGPT) 19 0-55 U/L Alkaline Phosphatase 100 40-136 U/L Myoglobin 64.2 10.0-92.0 NG/ML Troponin I < 0.028 <0.028 NG/ML Total Protein 6.9 6.4-8.2 GM/DL Albumin 3.8 3.2-4.5 GM/DL Physical Exam Physical Exam Vital Signs Vital Signs - First Documented 11/04/22 09:38 Temp 37.2 Pulse 168 Resp 22 B/P (MAP) 116/82 (93) Pulse Ox 95 O2 Delivery Room Air Capillary Refill : Height, Weight, BMI Height: 5'9.00" Weight: 192lbs. 0.0oz. 87.637073uv; 29.25 BMI Method: General Appearance: No Apparent Distress, WD/WN Eyes: Bilateral Eye Normal Inspection, Bilateral Eye PERRL, Bilateral Eye EOMI HEENT: PERRL/EOMI, TMs Normal, Normal ENT Inspection, Pharynx Normal, Moist Mucous Membranes Neck: Full Range of Motion, Normal Inspection, Non Tender, Supple, Carotid Bruit Respiratory: Chest Non Tender, Normal Breath Sounds, No Accessory Muscle Use, No Respiratory Distress Cardiovascular: No Edema, No Gallop, No JVD, No Murmur, Normal Peripheral Pulses, Irregularly Irregular, Tachycardia Gastrointestinal: Normal Bowel Sounds, No Organomegaly, No Pulsatile Mass, Non Tender, Soft Back: Normal Inspection, No CVA Tenderness, No Vertebral Tenderness Extremity: Normal Capillary Refill, Normal Inspection, Normal Range of Motion, Non Tender, No Calf Tenderness, No Pedal Edema Neurologic/Psychiatric: Alert, Oriented x3, No Motor/Sensory Deficits, Normal Mood/Affect Skin: Normal Color, Warm/Dry Lymphatic: No Adenopathy A/P-Cardiology Admission Diagnosis Atrial fibrillation Tachycardia Hypertension Pulmonary hypertension Assessment/Plan Atrial fibrillation with rapid ventricular response History of paroxysmal atrial fibrillation, it was felt initially that it was secondary to pneumonia and did not initiated on oral anticoagulation Started on Cardizem drip and Lovenox We will monitor and probably she will convert to sinus rhythm otherwise we will consider cardioversion Hypertension, starting Cardizem drip, monitor blood pressure Was at home on Cardizem CD 360 and losartan HCT 100/25 mg daily Hypothyroidism maintained on levothyroxine 50 mcg daily History of pulmonary hypertension, planning to repeat 2D echo Chronic kidney disease stage III, monitor renal function History of gastroesophageal reflux disease maintained on Protonix ABRAM MARQUEZ MD Nov 04, 2022 12:46
[2022-11-04] MEDS ORDERED: CATHETER FLUSH 10 ML SYR IVP PRN (14:00)
[2022-11-04] MEDS ORDERED: ONDANSETRON 4 MG/2 ML (SDV) Z0FRAN IV PRN (14:00)
[2022-11-04] MEDS ORDERED: dilTIAZem DRIP 125 MG/125 ML DRIP IV SCH (14:00)
[2022-11-04 14:06] VITALS: BP 133/80
[2022-11-04] MEDS ORDERED: ENOXAPARIN 100 MG/1 ML (LOVENOX) SYR SC SCH (15:00)
[2022-11-04] MEDS: CATHETER FLUSH 10 ML SYR IVP SCH ×2 (15:16→22:00)
--- NOTE | 2022-11-04 16:20 | Tele-ICU Progress Note ---
Progress Note Video assessment done , Hemodynamically stable Available charting reviewed, discussed with RN NO TELE-ICU CONSULT REQUESTED CONTINUE TO MONITOR PER USUAL TELE-ICU PROTOCOL No need for Tele-ICU interventions Plans as delineated by bedside physicians / consultants A fib RVR - in sinus now off cardizem gtt AC started CKD MICHELLE - has home CPAP with her - to cont Pulm HTN reported - ECHO pending Focused Exam Height, Weight, BMI Height: 5'9.00" Weight: 192lbs. 0.0oz. 87.038239vi; 30.10 BMI Method: DREW CASTANEDA MD Nov 04, 2022 16:20
[2022-11-04] MEDS ORDERED: RIVAROXABAN 20 MG TABLET (XARELTO) PO SCH (17:00)
--- NOTE | 2022-11-04 18:27 | History & Physical ---
History of Present Illness History of Present Illness Reason for visit/HPI This is a 72 year old female with a history of paroxysmal atrial fibrillation who presented to the hospital after awakening with sudden onset of nausea and vomiting. She checked her pulse and it was irregular so she presented to the emergency room and was found to be in atrial fibrillation with RVR. She was given heparin and started on a cardizem drip and has converted to a normal sinus rhythm. Date of Admission Nov 04, 2022 at 13:29 Date Seen by a Provider: Nov 04, 2022 Time Seen by a Provider: 18:21 I consulted on this patient on 11/04/22 18:21 Attending Physician Ariadna Chandler DO Admitting Physician Admitting Physician: Ariadna Chandler DO Attending Physician: Ariadna Chandler DO Consult Allergies and Home Medications Allergies Coded Allergies: No Known Drug Allergies (Unverified , 08/24/18) Patient Home Medication List Home Medication List Reviewed: Yes Acetaminophen (Tylenol Extra Strength) 500 Mg Tablet, 500-1,000 MG PO Q8H PRN for PAIN-MILD (1-4), (Reported) Entered as Reported by: KELL ALLEN on 01/01/21 1020 Amiodarone HCl (Amiodarone HCl) 200 Mg Tablet, 400 MG PO BID Prescribed by: EZIO CRUZ on 01/02/21 1244 Cholecalciferol (Vitamin D3) (Vitamin D3) 25 Mcg Tablet, 25 MCG PO DAILY, (Reported) Entered as Reported by: KELL ALLEN on 01/01/21 1020 Diltiazem HCl (Diltiazem 24Hr ER) 240 Mg Cap.er.24h, 240 MG PO DAILY Prescribed by: EZIO CRUZ on 01/02/21 1244 Loratadine (Loratadine) 10 Mg Tablet, 10 MG PO DAILY, (Reported) Entered as Reported by: KELL ALLEN on 01/01/21 1020 Magnesium (Magnesium) 250 Mg Tablet, 250 MG PO DAILY, (Reported) Entered as Reported by: PEDRO DAVILA on 08/17/18 0934 Pantoprazole Sodium (Pantoprazole Sodium) 40 Mg Tablet.dr, 40 MG PO DAILY, (Reported) Entered as Reported by: PEDRO DAVILA on 08/17/18 0934 Potassium Gluconate (Potassium Gluconate) 99 Mg Tablet.er, 99 MG PO DAILY, (Reported) Entered as Reported by: KELL ALLEN on 01/01/21 1020 Rivaroxaban (Xarelto Tablet) 20 Mg Tablet, 20 MG PO DAILY@1700 Prescribed by: EZIO CRUZ on 01/02/21 1239 Past Uszilkx-Pzagzg-Dryhpf Hx Patient Social History Marrital Status: Employed/Student: retired Tobacco Use?: No Use of E-Cig and/or Vaping dev: No Substance use?: No Alcohol Use?: No Pt feels they are or have been: No Immunizations Up To Date Date of Influenza Vaccine: Apr 20, 2018 First/Initial COVID19 Vaccinat: X3 Tetanus Booster (TDap): Unknown Date of Pneumonia Vaccine: Apr 20, 2018 Seasonal Allergies Seasonal Allergies: No Current Status status: No status: No Advance Directives: Yes Advance Directive Location: Home Communicates: Verbally Primary Language: Omani Preferred Spoken Language: Omani Is interpretation needed?: No Sensory deficits: Vision impairment Implanted or Applied Medical D: CPAP, Orthopedic hardware Past Medical History Surgeries: Hysterectomy, Tonsillectomy Hypertension [employer] History: Hysterectomy Polyps Arthritis Hypothyroidsim, Diabetes, Non-Insulin dep Blood Disorders: No Family Medical History Cancer, Hypertension Review of Systems Constitutional: weakness EENTM: No see HPI, No no symptoms reported, No ear discharge, No hearing loss, No ear pain, No blurred vision, No double vision, No eye pain, No tearing, No vision loss, No dental problems, No hoarseness, No mouth pain, No mouth swelling, No epistaxis, No nose congestion, No nose pain, No throat pain, No throat swelling, No other Respiratory: dyspnea on exertion Cardiovascular: palpitations Gastrointestinal: abdominal pain (epigastric recently), nausea, vomiting Genitourinary: No no symptoms reported, No see HPI, No decreased output, No discharge, No dysuria, No frequency, No hematuria, No hesitancy, No incontinence, No nocturia, No pain, No other Musculoskeletal: back pain Skin: No no symptoms reported, No see HPI, No change in color, No change in hair/nails, No dryness, No hx of skin cancer, No lesions, No lumps, No pruritus, No rash, No other Psychiatric/Neurological: Weakness All Other Systems Reviewed Negative Unless Noted: Yes Physical Exam Vital Signs Vital Signs - First Documented 11/04/22 09:38 Temp 37.2 Pulse 168 Resp 22 B/P (MAP) 116/82 (93) Pulse Ox 95 O2 Delivery Room Air Capillary Refill : Height, Weight, BMI Height: 5'9.00" Weight: 192lbs. 0.0oz. 87.128358bc; 30.10 BMI Method: General Appearance: No Apparent Distress HEENT: Normal ENT Inspection Neck: Supple Respiratory: Lungs Clear Cardiovascular: Regular Rate, Rhythm, Systolic Murmur, Gallop/S4 Gastrointestinal: Normal Bowel Sounds, Non Tender, Soft Rectal: Deferred Back: No CVA Tenderness Extremity: Non Tender, No Calf Tenderness, No Pedal Edema Neurologic/Psychiatric: Alert, Oriented x3 Skin: Warm/Dry Comments Laboratory Tests 11/04/22 09:42: White Blood Count 12.0H, Red Blood Count 4.55, Hemoglobin 12.9, Hematocrit 39, Mean Corpuscular Volume 86, Mean Corpuscular Hemoglobin 28, Mean Corpuscular Hemoglobin Concent 33, Red Cell Distribution Width 13.7, Platelet Count 303, Mean Platelet Volume 10.5, Immature Granulocyte % (Auto) 0, Neutrophils (%) (Auto) 90H, Lymphocytes (%) (Auto) 4L, Monocytes (%) (Auto) 4, Eosinophils (%) (Auto) 1, Basophils (%) (Auto) 0, Neutrophils # (Auto) 10.8H, Lymphocytes # (Auto) 0.5L, Monocytes # (Auto) 0.5, Eosinophils # (Auto) 0.1, Basophils # (Aut o) 0.0, Immature Granulocyte # (Auto) 0.0, Neutrophils % (Manual) 88, Lymphocytes % (Manual) 4, Monocytes % (Manual) 7, Eosinophils % (Manual) 1, Basophils % (Manual) 0, Band Neutrophils 0, Blood Morphology Comment NORMAL, Prothrombin Time 13.5, INR Comment 1.0, Activated Partial Thromboplast Time 34, Sodium Level 142, Potassium Level 4.2, Chloride Level 111H, Carbon Dioxide Level 19L, Anion Gap 12, Blood Urea Nitrogen 24H, Creatinine 1.10, Estimat Glomerular Filtration Rate 53, BUN/Creatinine Ratio 22, Glucose Level 159H, Calcium Level 8.7, Corrected Calcium 8.9, Magnesium Level 2.0, Total Bilirubin 0.5, Aspartate Amino Transf (AST/SGOT) 14, Alanine Aminotransferase (ALT/SGPT) 19, Alkaline Phosphatase 100, Myoglobin 64.2, Troponin I < 0.028, Total Protein 6.9, Albumin 3.8 11/04/22 16:10: Troponin I < 0.028 Assessment/Plan Assessment and Plan 1. Atrial Fibrillation with RVR--back in NSR after cardizem drip, now on oral cardizem, multaq and xarelto, DC tomorrow if remains in NSR, discussed EP evalua tion with patient and daughter 2. Hypertension--on cardizem 3. GERD--protonix started 4. MICHELLE--on CPAP Admission Diagnosis Admission Status: Observation ARIADNA CHANDLER DO Nov 04, 2022 18:27
[2022-11-04] MEDS: DRONEDARONE 400 MG TABLET PO SCH (20:46)
[2022-11-05 04:53] LABS: HEMATOCRIT 34 % (35-52); HEMOGLOBIN 11.2 g/dL (11.5-16.0); MEAN CORPUSCULAR HEMOGLOBIN 29 pg (25-34); MEAN CORPUSCULAR HGB CONC 33 g/dL (32-36); MEAN CORPUSCULAR VOLUME 87 fL (80-99); MEAN PLATELET VOLUME 10.5 fL (9.0-12.2); PLATELET COUNT 222 10^3/uL (130-400); WHITE BLOOD COUNT 6.6 10^3/uL (4.3-11.0)
[2022-11-05 05:17] LABS: CALCIUM 8.5 MG/DL (8.5-10.1); CREATININE SERUM 1.07 MG/DL (0.60-1.30); POTASSIUM 3.7 MMOL/L (3.6-5.0)
[2022-11-05] MEDS: CATHETER FLUSH 10 ML SYR IVP SCH (06:04)
[2022-11-05] MEDS ORDERED: LEVOTHYROXINE 50 MCG (LEVOTHROID) TAB PO SCH (06:30)
--- NOTE | 2022-11-05 08:08 | Cardiology Progress Note ---
Subjective Date Seen by Provider: Nov 05, 2022 Time Seen by Provider: 08:07 Subjective/Events-last exam Patient was seen at bedside laying down comfortably, feeling better. No new complaint. Review of Systems General: No Chills, No Night Sweats, No Fatigue, No Malaise, No Appetite, No Other HEENT: No Head Aches, No Visual Changes, No Eye Pain, No Ear Pain, No Dysph malou, No Sinus Congestion, No Post Nasal Drip, No Sore Throat, No Other Pulmonary: No Dyspnea, No Cough, No Pleuritic Chest Pain, No Other Cardiovascular: No: Chest Pain, Palpitations, Orthopnea, Paroxysmal Noc. Dyspnea, Edema, Lt Headedness, Other Objective-Cardiology Exam Last Set of Vital Signs Vital Signs 11/05/22 11/05/22 11/05/22 11/05/22 07:00 07:06 07:28 07:43 Temp 36.6 Pulse 66 Resp 33 B/P (MAP) 134/55 (81) Pulse Ox 92 O2 Delivery Room Air I&O Intake and Output 11/05/22 00:00 Intake Total 345 ml Balance 345 ml Intake Oral 320 ml IV Total 25 ml # Voids 3 # Bowel Movements 1 Daily Weight Change No General: Alert, Oriented X3, Cooperative HEENT: Atraumatic, PERRLA Neck: Supple, No JVD, No Thyromegaly Lungs: Clear to Auscultation, Normal Air Movement Heart: Regular Rate, Normal S1, Normal S2, No Murmurs Abdomen: Normal Bowel Sounds, Soft, No Tenderness, No Hepatosplenomegaly, No Masses Extremities: No Clubbing, No Cyanosis, No Edema, Normal Pulses, No Tenderness/Swelling Skin: No Rashes, No Breakdown, No Significant Lesion Neuro: Normal Gait, Normal Speech, Strength at 5/5 X4 Ext, Normal Tone, Sensation Intact Psych/Mental Status: Mental Status NL, Mood NL Results Lab Laboratory Tests 11/04/22 09:42 11/05/22 03:37 A/P-Cardiology Admission Diagnosis Atrial fibrillation Tachycardia Hypertension Pulmonary hypertension Assessment/Plan Paroxysmal atrial fibrillation with rapid ventricular response Converted to sinus rhythm on Cardizem drip. CHADVASC score 4, starting on Xarelto 2D echo was done on November 04, 2022 with normal LV size, ejection fraction 60 to 65%, PA pressure 20 to 25 mmHg Hypertension, starting Cardizem drip, monitor blood pressure Was at home on Cardizem CD 360 and losartan HCT 100/25 mg daily Hypothyroidism maintained on levothyroxine 50 mcg daily History of pulmonary hypertension, resolved Chronic kidney disease stage III, monitor renal function History of gastroesophageal reflux disease maintained on Protonix ABRAM MARQUEZ MD Nov 05, 2022 08:08
[2022-11-05] MEDS ORDERED: PANTOPRAZOLE 40 MG (PROTONIX) TAB PO SCH (09:00)
[2022-11-05] MEDS ORDERED: FURO40TA4 PO (10:00)
[2022-11-05] MEDS ORDERED: LOSA100T57 PO (10:00)
[2022-11-05] MEDS ORDERED: POTA-51 PO (10:00)
[2022-11-05] MEDS ORDERED: MAGN400T39 PO (10:00)
[2022-11-05] MEDS ORDERED: LEVO50TA6 PO (10:00)
[2022-11-05] MEDS ORDERED: LORA10TA7 PO (10:00)
[2022-11-05] MEDS ORDERED: ERGO400C PO (10:00)
[2022-11-05] MEDS ORDERED: DILT360C36 PO (10:00)
[2022-11-05] MEDS ORDERED: GUAI1TAB25 PO (10:00)
[2022-11-05] MEDS ORDERED: POTA99TA26 PO (10:00)
[2022-11-05] MEDS ORDERED: DICL100G13 TP (10:01)
[2022-11-05] MEDS: DRONEDARONE 400 MG TABLET PO SCH (10:39)
[2022-11-05] MEDS ORDERED: DILT180C85 PO (12:19)
[2022-11-05] MEDS ORDERED: DRON400T6 PO (12:19)
[2022-11-05] MEDS ORDERED: RIVA20TA2 PO (12:19)
--- NOTE | 2022-11-05 12:34 | Tele-ICU Progress Note ---
Subjective Date Seen by a Provider: Nov 05, 2022 Time Seen by a Provider: 12:33 Subjective/Events-last exam Video assessment done , Hemodynamically stable Available charting reviewed, discussed with RN NO TELE-ICU CONSULT REQUESTED CONTINUE TO MONITOR PER USUAL TELE-ICU PROTOCOL No need for Tele-ICU interventions Plans as delineated by bedside physicians / consultants A fib RVR:- Off cardizem gtt. in sinus now CKD MICHELLE - has home CPAP with her - to cont Likely d/c today Sepsis Event Evaluation Height, Weight, BMI Height: 5'9.00" Weight: 192lbs. 0.0oz. 87.814506xo; 30.20 BMI Method: Exam Exam Patient acknowledged, consented, and participated in this virtual visit which was conducted using real time audio/video Vital Signs Date Time Temp Pulse Resp B/P (MAP) Pulse Ox O2 Delivery O2 Flow Rate FiO2 11/05/22 12:13 68 11/05/22 11:53 36.5 11/05/22 07:43 92 Room Air 11/05/22 07:28 36.6 11/05/22 07:06 66 11/05/22 07:00 67 33 134/55 (81) 94 Room Air 11/05/22 06:00 92 Room Air 11/05/22 00:58 70 11/05/22 00:00 95 Room Air 11/04/22 20:27 36.4 Room Air 11/04/22 20:27 94 Room Air 11/04/22 20:00 73 9 128/63 (84) 96 Room Air 11/04/22 19:09 94 Room Air 11/04/22 19:01 67 11/04/22 19:00 67 14 120/70 (87) 96 Room Air 11/04/22 18:00 76 15 129/81 (97) 94 Room Air 11/04/22 17:00 71 19 122/73 (89) 96 Room Air 11/04/22 16:00 70 15 109/81 (90) 96 Room Air 11/04/22 15:46 99 Room Air 11/04/22 15:39 36.2 11/04/22 15:30 76 22 132/63 (86) 90 Room Air 11/04/22 15:15 71 17 115/65 (82) 99 Room Air 11/04/22 15:00 72 15 131/63 (85) 96 Room Air 11/04/22 14:45 74 23 127/73 (91) 94 Room Air 11/04/22 14:30 76 20 128/86 (100) 95 Room Air 11/04/22 14:15 95 Room Air 11/04/22 14:15 73 20 112/79 (90) 97 Room Air 11/04/22 14:12 77 11/04/22 14:06 37.2 100 95 11/04/22 14:01 101 11/04/22 14:00 100 35 116/102 (107) 96 Room Air 11/04/22 13:45 100 146/123 (131) Room Air 11/04/22 13:06 37.2 100 17 133/80 95 Room Air I & O 11/05/22 07:00 Intake Total 405 ml Balance 405 ml Height & Weight Height: 5'9.00" Weight: 192lbs. 0.0oz. 87.975069ad; 30.20 BMI Method: General Appearance: No Apparent Distress HEENT: Normal ENT Inspection Neck: Supple Respiratory: Lungs Clear Cardiovascular: Regular Rate, Rhythm, Systolic Murmur, Gallop/S4 Extremity: Non Tender, No Calf Tenderness, No Pedal Edema Neurologic/Psychiatric: Alert, Oriented x3 Skin: Warm/Dry Lymphatic: No Adenopathy Results Lab Laboratory Tests 11/04/22 09:42 11/05/22 03:37 Assessment/Plan Assessment/Plan . AMADA ALVAREZ MD Nov 05, 2022 12:34
[2022-11-05 13:00] VITALS: BP 134/55
== END 2022-11-05 13:00 | disposition home or self-care (01) ==
LOC: EDUNIT# 09:26 → ER 09:28 → ICU 13:29
PROVIDERS: ADMIT Family Medicine; ATTEND Family Medicine
DX: I48.91 Unspecified atrial fibrillation (principal); N18.9 Chronic kidney disease, unspecified; G47.33 Obstructive sleep apnea (adult) (pediatric); I10 Essential (primary) hypertension; I27.20 Pulmonary hypertension, unspecified; E03.9 Hypothyroidism, unspecified; N18.30 Chronic kidney disease, stage 3 unspecified; K21.9 Gastro-esophageal reflux disease without esophagitis; Z99.81 Dependence on supplemental oxygen; Z77.22 Contact with and (suspected) exposure to environmental tobacco smoke (acute) (chronic); Z79.899 Other long term (current) drug therapy; Z79.890 Hormone replacement therapy
CPT/HCPCS: 71045; 80048; 80053; 80061; 83735; 83874; 84484; 85007; 85027 ×2; 85610; 85730; 87081; 93005; 93041; 99284; C8929; G0378; 36415; 93306

== ENCOUNTER → 2023-03-03 | Outpatient (CLI) | payer MEDICARE ==
[~2023-03-03] MED LIST changes: +DICL100G13 TP; +DILT180C85 PO; +DILT360C36 PO; +DRON400T6 PO; +ERGO400C PO; +FURO40TA4 PO; +GUAI1TAB25 PO; +LEVO50TA6 PO; +LOSA100T58 PO; +MAGN400T39 PO; +POTA-330 PO; +POTA99TA26 PO
--- NOTE | 2023-03-03 15:57 | Diagnostic Imaging Report ---
INDICATION: Routine screening. Comparison is made with prior mammogram from 07/25/2020 and 08/10/2018. 2-D and 3-D bilateral screening mammography was performed with CAD. Both breasts are heterogeneously dense, limiting the sensitivity of mammography. A right breast density previously described appears stable. No new mass or malignant appearing microcalcifications are seen. There are benign calcifications within both breasts. Axillae are unremarkable. IMPRESSION: No mammographic features suspicious for malignancy are identified. ACR BI-RADS Category 2: Benign findings. Result letter will be mailed to the patient. Note: At least 10% of breast cancer is not imaged by mammography. BI-RADS Category 2 Dictated by: Dictated on workstation # [id number]
== END ==
LOC: RAD 11:26
PROVIDERS: ATTEND Family Medicine
DX: Z12.31 Encounter for screening mammogram for malignant neoplasm of breast (principal)
CPT/HCPCS: 77063; 77067